=== PATIENT | female | born 1955 | race African-American/Black ===

== ENCOUNTER → 2018-05-04 | Outpatient (CLI) | payer MEDICARE ==
[2018-05-04 18:05] LABS: CHOLESTEROL 207.05 mg/dL (0-200); TRIGLYCERIDES 94 mg/dL (<150)
[2018-05-04 18:17] LABS: DIRECT LDL 121 mg/dL (<100)
[2018-05-04 18:26] LABS: FREE T3 3.37 pg/mL (2.77-5.27); FREE T4 (FREE THYROXINE) 1.15 ng/dL (0.78-2.19)
[2018-05-04 18:39] LABS: THYROID STIMULATING HORMONE 4.88 uIU/mL (0.47-4.68)
== END ==
LOC: OD 15:44
PROVIDERS: ATTEND Internal Medicine Geriatric Medicine
DX: E03.9 Hypothyroidism, unspecified (principal); E11.65 Type 2 diabetes mellitus with hyperglycemia
CPT/HCPCS: 36415; 80061; 84439; 84443; 84481

== ENCOUNTER 2018-11-25 17:08 | Emergency (ER) | payer OTHER, MEDICARE ==
[2018-11-25] MEDS ORDERED: ACETAMINOPHEN 325 MG TABLET PO ONE (17:55)
[2018-11-25] MEDS ORDERED: LIDOCAINE 5% (700 MG) TRANSDERMAL ADH..PATCH TP ONE (17:55)
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
[2018-11-25 20:23] VITALS: BP 140/76
== END 2018-11-25 20:23 | disposition home or self-care (01) ==
LOC: ER 17:08
DX: M25.512 Pain in left shoulder (principal); M54.6 Pain in thoracic spine; V87.7XXA Person injured in collision between other specified motor vehicles (traffic), initial encounter; J44.9 Chronic obstructive pulmonary disease, unspecified; Z99.81 Dependence on supplemental oxygen; Z87.891 Personal history of nicotine dependence
CPT/HCPCS: 99283

== ENCOUNTER → 2019-08-17 | Outpatient (CLI) | payer MEDICARE ==
--- NOTE | 2019-08-17 14:59 | WOMENS IMAGING REPORT ---
EXAM DESCRIPTION: 3D SCREENING MAMMO BILAT COMPLETED DATE/TIME: 08/17/2019 2:20 pm REASON FOR STUDY: Z12.31 SCREENING MAMMO Z12.31 ENCNTR SCREEN MAMMOGRAM FOR MALIGNANT NEOPLASM OF B RE COMPARISON: 2013. EXAM PARAMETERS: Standard craniocaudal and mediolateral oblique views of each breast recorded using digital acquisition and breast tomosynthesis. Read with the assistance of CAD. .[facility] - [employer] Version 9.2 LIMITATIONS: None. FINDINGS: Findings present which are benign by mammographic criteria. No suspicious masses, calcific ations or architectural distortion. Pertinent benign findings: Benign cluster of stable calcifications right breast. Benign mammographic findings may include one or more of the following: Smooth masses, popcorn/rim/coa rse calcifications, asymmetries, post-procedure changes, and lesions with long-standing stability. IMPRESSION: BENIGN MAMMOGRAPHIC FINDINGS. BIRADS 2 BREAST DENSITY: a. The breasts are almost entirely fatty. BIRAD: ASSESSMENT: 2 BENIGN FINDING(S) RECOMMENDATION: ROUTINE SCREENING COMMENT: The patient has been notified of the results by letter per SA requirements. Additional no tification policies are in place for contacting patient with suspicious or incomplete findings. Quality ID #225: The [employer] recommends an annual screening mammogram for women aged 40 years or over. This facility utilizes a reminder system to ensure that all patients receive reminder letters, and/or direct phone calls for appointments. This includes reminders for routine scr eening mammograms, diagnostic mammograms, or other Breast Imaging Interventions when appropriate. Th is patient will be placed in the appropriate reminder system. TECHNICAL DOCUMENTATION: FINDING NUMBER: (1) ASSESSMENT: (1) JOB ID: [id number] [employer]- All Rights Reserved Reading location - IP/workstation name: [email or web address]
== END ==
LOC: WI 13:40
PROVIDERS: ATTEND Internal Medicine Geriatric Medicine
DX: Z12.31 Encounter for screening mammogram for malignant neoplasm of breast (principal)
CPT/HCPCS: 77063; 77067

== ENCOUNTER → 2020-09-17 | Outpatient (CLI) | payer MEDICARE ==
--- NOTE | 2020-09-18 12:19 | WOMENS IMAGING REPORT ---
EXAM DESCRIPTION: 3D SCREENING MAMMO BILAT IMAGES COMPLETED DATE/TIME: 09/17/2020 3:26 pm REASON FOR STUDY: Z12.31 ENCOUNTER FOR SCREENING MAMMOGRAM FOR MALIGNANT NEOPLASM OF BREAST Z12.31 ENCNTR SCREEN MAMMOGRAM FOR MALIGNANT NEOPLASM OF [place] COMPARISON: 08/17/2019 and 11/30/2013. EXAM PARAMETERS: Standard craniocaudal and mediolateral oblique views of each breast recorded using digital acquisition and breast tomosynthesis. Read with the assistance of CAD. .[facility] - [employer] Version 9.2 LIMITATIONS: None. FINDINGS: Findings present which are benign by mammographic criteria. No suspicious masses, calcific ations or architectural distortion. Pertinent benign findings: Benign calcifications Benign mammographic findings may include one or more of the following: Smooth masses, popcorn/rim/coa rse calcifications, asymmetries, post-procedure changes, and lesions with long-standing stability. IMPRESSION: BENIGN MAMMOGRAPHIC FINDINGS. BIRADS 2 BREAST DENSITY: a. The breasts are almost entirely fatty. BIRAD: ASSESSMENT: 2 BENIGN FINDING(S) RECOMMENDATION: ROUTINE SCREENING COMMENT: The patient has been notified of the results by letter per SA requirements. Additional no tification policies are in place for contacting patient with suspicious or incomplete findings. Quality ID #225: The [employer] recommends an annual screening mammogram for women aged 40 years or over. This facility utilizes a reminder system to ensure that all patients receive reminder letters, and/or direct phone calls for appointments. This includes reminders for routine scr eening mammograms, diagnostic mammograms, or other Breast Imaging Interventions when appropriate. Th is patient will be placed in the appropriate reminder system. TECHNICAL DOCUMENTATION: FINDING NUMBER: (1) ASSESSMENT: (1) JOB ID: [id number] 2010 [employer]- All Rights Reserved Reading location - IP/workstation name: [email or web address]
== END ==
LOC: WI 14:58
PROVIDERS: ATTEND Internal Medicine Geriatric Medicine
DX: Z12.31 Encounter for screening mammogram for malignant neoplasm of breast (principal)
CPT/HCPCS: 77063; 77067

== ENCOUNTER 2020-11-17 16:11 | Inpatient (IN) | payer MEDICARE ==
[2020-11-17 18:10] LABS: ABSOLUTE LYMPHOCYTES (AUTO) 0.4 10^3/uL (0.5-4.7); ABSOLUTE MONOCYTES (AUTO) 0.5 10^3/uL (0.1-1.4); ABSOLUTE NEUT (AUTO) 2.2 10^3/uL (1.7-8.2); BASOPHILS % (AUTO) 0.6 % (0-2); HEMOGLOBIN 11.1 g/dL (12.0-15.5); LYMPHOCYTES % (AUTO) 13.1 % (13-45); MEAN CORPUSCULAR HEMOGLOBIN 31.5 pg (27.0-33.4); MEAN CORPUSCULAR HGB CONC 33.7 g/dL (32.0-36.0); MEAN CORPUSCULAR VOLUME 93 fl (80-97); MONOCYTES % (AUTO) 14.8 % (3-13); PLATELET COUNT 151 10^3/uL (150-450); RED BLOOD COUNT 3.53 10^6/uL (3.72-5.28); RED CELL DISTRIBUTION WIDTH 13.9 % (11.5-14.0); SEGMENTED NEUTROPHILS % (AUTO) 71.5 % (42-78); TOTAL CELLS COUNTED % (AUTO) 100 %
[2020-11-17 18:27] LABS: ALBUMIN 3.7 g/dL (3.5-5.0); ALKALINE PHOSPHATASE 63 U/L (38-126); ANION GAP 7 (5-19); ASPARTATE AMINO TRANSFERASE 22 U/L (14-36); BILIRUBIN,DIRECT 0.3 mg/dL (0.0-0.4); BILIRUBIN,TOTAL 0.6 mg/dL (0.2-1.3); BLOOD UREA NITROGEN 11 mg/dL (7-20); CALCIUM 9.1 mg/dL (8.4-10.2); CARBON DIOXIDE 34 mmol/L (22-30); CHLORIDE 95 mmol/L (98-107); GLUCOSE 91 mg/dL (75-110); POTASSIUM 4.2 mmol/L (3.6-5.0); TOTAL PROTEIN 7.2 g/dL (6.3-8.2)
[2020-11-17] MEDS ORDERED: ACETAMINOPHEN 325 MG TABLET PO ONE (20:17)
[2020-11-17] MEDS ORDERED: ONDANSETRON HCL INJ/PF 4 MG/2 ML SDV IV ONE (20:18)
[2020-11-17] MEDS ORDERED: ONDANSETRON HCL INJ/PF 4 MG/2 ML SDV ONE (20:20)
[2020-11-17] MEDS ORDERED: FENTANYL CITRATE INJ/PF 100 MCG/2 ML AMPUL IV ONE (21:32)
--- NOTE | 2020-11-17 21:35 | ER Document Report ---
ED Medical Screen (RME) - General TRAVEL OUTSIDE OF THE [place] IN LAST 30 DAYS: No - Related Data Home Medications: current med list in Pt. chart <ALEXANDRA MCLAIN - Last Filed: 11/17/20 21:33> <ARGEINS GRIFFITH IV - Last Filed: 11/18/20 01:12> - General Chief Complaint: Shortness Of Breath Stated Complaint: WEAKNESS Time Seen by Provider: 11/17/20 21:24 Primary Care Provider: OLAF GALLARDO MD [Primary Care Provider] - Follow up as needed Notes: Patient presents complaining of cough and cold symptoms for the past week. Patient did test positive this evening via a rapid Covid test per EMS. Patient reports nausea vomiting diarrhea. Patient complains of headache and generalized body aches. Patient complains of left hip pain. Patient does complain of chest pain and shortness of breath. Patient with a history of hypertension, asthma, diabetes and COPD. Patient does wear oxygen at 2 L. I have greeted and performed a rapid initial assessment of this patient. A comprehensive ED assessment and evaluation of the patient, analysis of test results and completion of the medical decision making process will be conducted by additional ED providers. (ALEXANDRA MCLAIN) - Related Data Allergies/Adverse Reactions: aspirin Allergy (Verified 03/03/19 14:22) rivaroxaban [From Xarelto] Allergy (Verified 03/03/19 14:22) Past Medical History - Social History Chew tobacco use (# tins/day): No Frequency of alcohol use: None Drug Abuse: None - Past Medical History Cardiac Medical History: Reports: Hx Hypercholesterolemia, Hx Hypertension Denies: Hx Heart Attack Pulmonary Medical History: Reports: Hx Asthma, Hx COPD Neurological Medical History: Denies: Hx Cerebrovascular Accident, Hx Seizures Endocrine Medical History: Reports: Hx Diabetes Mellitus Type 2 Renal/ Medical History: Denies: Hx Peritoneal Dialysis GI Medical History: Reports: Hx Hiatal Hernia. Denies: Hx Hepatitis, Hx Ulcer Psychiatric Medical History: Reports: Hx Depression Infectious Medical History: Denies: Hx Hepatitis Past Surgical History: Denies: Hx Mastectomy, Hx Open Heart Surgery, Hx Pacemaker - Immunizations Hx Diphtheria, Pertussis, Tetanus Vaccination: No <ALEXANDRA MCLAIN - Last Filed: 11/17/20 21:33> Physical Exam - General General appearance: Alert - Respiratory Respiratory status: No respiratory distress Breath sounds: Nonproductive cough <ALEXANDRA MCLAIN - Last Filed: 11/17/20 21:33> - Vital signs Vitals: Temp 99.8 F 11/17/20 16:12 - General Notes: Left hip tenderness (ALEXANDRA MCLAIN) Course - Laboratory Results Result Diagrams: 11/17/20 16:36 11/17/20 16:36 <ALEXANDRA MCLAIN - Last Filed: 11/17/20 21:33> - Laboratory Results Result Diagrams: 11/17/20 16:36 11/17/20 16:36 <ARGENIS GRIFFITH IV - Last Filed: 11/18/20 01:12> - Vital Signs Vital signs: Temp Pulse Resp BP Pulse Ox 99.8 F 11/17/20 16:12 - Laboratory Results Laboratory Results Interpreted: 11/17/20 11/17/20 11/17/20 16:36 16:36 23:20 WBC 3.0 L RBC 3.53 L Hgb 11.1 L Hct 33.0 L [place] % (Auto) 14.8 H Absolute Lymphs (auto) 0.4 L Sodium 135.6 L Chloride 95 L Carbon Dioxide 34 H Urine Protein Urine Glucose (UA) Urine Ketones Urine Urobilinogen SARS-CoV-2 Rap RNA(RT-PCR) POSITIVE H 11/17/20 23:30 WBC RBC Hgb Hct [place] % (Auto) Absolute Lymphs (auto) Sodium Chloride Carbon Dioxide Urine Protein 30 H Urine Glucose (UA) 50 H Urine Ketones 80 H Urine Urobilinogen 2.0 H SARS-CoV-2 Rap RNA(RT-PCR) Doctor's Discharge <ALEXANDRA MCLAIN - Last Filed: 11/17/20 21:33> <ARGENIS GRIFFITH IV - Last Filed: 11/18/20 01:12> - Discharge Referrals: OLAF GALLARDO MD [Primary Care Provider] - Follow up as needed
--- NOTE | 2020-11-17 22:28 | RADIOLOGY REPORT (SQ) ---
EXAM DESCRIPTION: X-RAY CHEST- One View CLINICAL HISTORY: Chest pain, cough. COMPARISON: March 03, 2019 TECHNIQUE: Single view of the chest. FINDINGS: There are overlying EKG leads. Examination is technically limited by rotated positioning. There are no discrete air space infiltrates, pneumothoraces or pleural effusions. The pulmonary vascularity is normal. The cardiomediastinal silhouette is persistently significantly enlarged, particularly the right heart border. Osseous structures are grossly stable in appearance. IMPRESSION: There are no acute lung parenchymal findings. Persistent significant enlargement of the cardiac silhouette.
[2020-11-17] MEDS ORDERED: NORMAL SALINE 1000 ML 1,000 ML IV ONE (23:02)
[2020-11-17] MEDS ORDERED: DEXAMETHASONE SOD PHOS INJ 10 MG/1 ML VIAL IV ONE (23:02)
[2020-11-17] MEDS ORDERED: LEVALBUTEROL HCL NEB 1.25 MG/3 ML AMPUL NEB ONE (23:04)
[2020-11-17] MEDS ORDERED: KETOROLAC TROMETHAMINE INJ/PF 30 MG/1 ML SDV IV ONE (23:04)
[2020-11-17 23:45] LABS: APPEARANCE,URINE SLIGHTLY-CLOUDY; BILIRUBIN,URINE NEGATIVE (NEGATIVE); COLOR,URINE YELLOW; GLUCOSE, URINE 50 mg/dL (NEGATIVE); KETONES,URINE 80 mg/dL (NEGATIVE); LEUKOCYTE ESTERASE,URINE NEGATIVE (NEGATIVE); NITRITE,URINE NEGATIVE (NEGATIVE); PROTEIN,URINE 30 mg/dL (NEGATIVE); URINE SPECIFIC GRAVITY 1.026
--- NOTE | 2020-11-18 01:07 | ER Document Report ---
ED General - General Chief Complaint: Shortness Of Breath Stated Complaint: WEAKNESS Time Seen by Provider: 11/17/20 21:24 Primary Care Provider: OLAF GALLARDO MD [Primary Care Provider] - Follow up as needed TRAVEL OUTSIDE OF THE [place] IN LAST 30 DAYS: No - HPI Context: Chief Complaint: [Dyspnea] [This is a 65-year-old female, morbidly obese with multiple comorbidities including diabetes, asthma, COPD, on 2 L of home O2, with a history of A. fib, hyperlipidemia and hypertension that presents to the emergency department complaining of shortness of breath, nausea, vomiting, diarrhea, headache, generalized myalgias and chest tightness associated with shortness of breath. Patient called EMS and was found to be Covid positive on the rapid Covid test that EMS utilizes. ] History obtained from [patient] Symptoms began:[Yesterday] Onset: [Gradual] Timing: [Gradual] Quality: [Aching] Intensity: [5 out of 5] Location: [Generalized] Radiation: [Denies] [The pain does not migrate to a new location.] Aggravating factors: Exertion Relieving factors: [none] Positive SOB Positive nausea Positive vomiting [Denies] sweats [Denies] fever [Denies] cough [Denies] calf or leg swelling or pain - Related Data Allergies/Adverse Reactions: aspirin Allergy (Verified 03/03/19 14:22) rivaroxaban [From Xarelto] Allergy (Verified 03/03/19 14:22) Home Medications: current med list in Pt. chart Past Medical History - General Information source: Patient - Social History Smoking Status: Former Smoker Chew tobacco use (# tins/day): No Frequency of alcohol use: None Drug Abuse: None Family History: Reviewed & Not Pertinent Patient has homicidal ideation: No - Past Medical History Cardiac Medical History: Reports: Hx Hypercholesterolemia, Hx Hypertension Denies: Hx Heart Attack Pulmonary Medical History: Reports: Hx Asthma, Hx COPD Neurological Medical History: Denies: Hx Cerebrovascular Accident, Hx Seizures Endocrine Medical History: Reports: Hx Diabetes Mellitus Type 2 Renal/ Medical History: Denies: Hx Peritoneal Dialysis GI Medical History: Reports: Hx Hiatal Hernia. Denies: Hx Hepatitis, Hx Ulcer Psychiatric Medical History: Reports: Hx Depression Infectious Medical History: Denies: Hx Hepatitis Past Surgical History: Denies: Hx Mastectomy, Hx Open Heart Surgery, Hx Pacemaker - Immunizations Hx Diphtheria, Pertussis, Tetanus Vaccination: No Hx Pneumococcal Vaccination: 11/16/15 Review of Systems - Review of Systems Notes: Review of systems as below unless otherwise stated in HPI. CONSTITUTIONAL [No] fever, [No] chills. EYES [No] eye pain. ENT [No] URI symptoms, [No] sore throat, [No] ear pain. CARDIOVASCULAR Positive chest pain, [No] palpitations, [No] edema. RESPIRATORY Positive cough, positive SOB, [No] wheezing. GASTROINTESTINAL [No] abdominal pain, positive nausea, positive diarrhea, positive vomiting, [No] constipation, [No] melena, [No] rectal bleeding. GENITOURINARY [No] dysuria, [No] urinary frequency, [No] hematuria, [No] urinary urgency, [No] vaginal discharge, [No] vaginal bleeding. MUSCULOSKELETAL [No] Back pain. Positive generalized myalgias SKIN [No] Rash. NEUROLOGIC Positive headache, [No] recent seizures, [No] paralysis,[No] parathesias. ENDOCRINE [No] polyuria. HEMO/LYMPATIC [No] easy brusing PSYCHIATRIC [No] depression. Physical Exam - Vital signs Vitals: Temp 99.8 F 11/17/20 16:12 - Notes Notes: CONSTITUTIONAL [Vital signs reviewed, Patient appears mildly uncomfortable, Alert and oriented X 3, patient is morbidly obese] HEAD [Atraumatic, Normocephalic.] EYES [Eyes are normal to inspection, No discharge from eyes, Extraocular muscles intact, Sclera are normal, Conjunctiva are normal.] ENT [External ears normal to inspection, Nose examination normal, Mouth normal to inspection.] NECK [Normal ROM, No jugular venous distention, No meningeal signs, ] RESPIRATORY CHEST [Chest is nontender, Breath sounds normal, No respiratory distress.] CARDIOVASCULAR [RRR, No murmurs, Normal S1 S2, No rub, No gallop.] ABDOMEN [Abdomen is nontender, No pulsatile masses, No other masses, Bowel sounds normal, No distension, No peritoneal signs, No hernias.] BACK [There is no CVA Tenderness, There is no tenderness to palpation, Normal inspection.] UPPER EXTREMITY [Inspection normal, No cyanosis, No clubbing, No edema, LOWER EXTREMITY [Inspection normal, No cyanosis, No clubbing, No edema, No calf tenderness, NEURO [No focal motor deficits, No focal sensory deficits, Speech normal.] SKIN [Skin is warm, Skin is dry, Skin is normal color.] PSYCHIATRIC [Normal affect. ] Course - Re-evaluation Re-evalutation: 11/18/20 01:22 Results of ED MSE discussed with patient. All questions were answered. Admission was recommended to the patient given her comorbidities and history of COPD, asthma and complaint of shortness of breath. Patient was agreeable to this - Vital Signs Vital signs: Temp Pulse Resp BP Pulse Ox 99.8 F 11/17/20 16:12 - Laboratory Results Result Diagrams: 11/17/20 16:36 11/17/20 16:36 Laboratory Results Interpreted: 11/17/20 11/17/20 11/17/20 16:36 16:36 23:20 WBC 3.0 L RBC 3.53 L Hgb 11.1 L Hct 33.0 L [place] % (Auto) 14.8 H Absolute Lymphs (auto) 0.4 L Sodium 135.6 L Chloride 95 L Carbon Dioxide 34 H Urine Protein Urine Glucose (UA) Urine Ketones Urine Urobilinogen SARS-CoV-2 Rap RNA(RT-PCR) POSITIVE H 11/17/20 23:30 WBC RBC Hgb Hct [place] % (Auto) Absolute Lymphs (auto) Sodium Chloride Carbon Dioxide Urine Protein 30 H Urine Glucose (UA) 50 H Urine Ketones 80 H Urine Urobilinogen 2.0 H SARS-CoV-2 Rap RNA(RT-PCR) Critical Laboratory Results Reviewed: Yes Attending or Supervising Physician who Reviewed Labs: ARGENIS GRIFFITH IV - Patient is Covid positive - Radiology Results Critical Radiology Results Reviewed: No Critical Results Attending or Supervising Physician who Reviewed Radiology: ARGENIS GRIFFITH IV - EKG Interpretation by Me Additional EKG results interpreted by me: 11/18/20 01:24 EKG obtained on 11/17/2020 at 2211 hrs. was interpreted by this . Findings: Normal sinus rhythm, rate 73, normal axis, IA interval appears to be within normal limits, P waves preceding QRS complexes, with the exception of some artifact the QRS complexes appear narrow, QTC is 410, there are no obvious patterns of ST segment elevation, depression or reciprocal changes seen to suggest acute myocardial ischemia. When compared with prior EKG from 12/05/2018, previous EKG showed a tachycardia with a rate of 188 with some irregularity. Today's EKG appears improved with a normal sinus rhythm. Impression normal sinus rhythm with nonspecific ST segment findings. - Consults Dr. Vuong Time consulted: 01:10 - Dr. Vuong agreed to admit the patient on behalf of Dr. Gallardo Reason for consultation: 11/18/20 01:26 COVID-19 patient with shortness of breath and multiple comorbidities Discharge - Discharge Clinical Impression: COVID-19 Condition: Stable Disposition: ADMITTED INPATIENT Admitting Provider: Brooke Unit Admitted: [facility] Referrals: OLAF GALLARDO MD [Primary Care Provider] - Follow up as needed
[2020-11-18] MEDS ORDERED: AZITHROMYCIN 250 MG TABLET PO ONE (09:00)
--- NOTE | 2020-11-18 09:47 | EKG REPORT ---
SEVERITY:- ABNORMAL ECG - SINUS RHYTHM : Confirmed by: Andrew Madison MD 18-Nov-2020 09:46:11
[2020-11-18] MEDS: PANTOPRAZOLE SODIUM 40 MG TABLET.DR PO SCH (09:51)
[2020-11-18] MEDS: ASCORBIC ACID 500 MG TABLET PO SCH ×2 (09:51→18:01)
[2020-11-18] MEDS: CHOLECALCIFEROL (D3) 1,000 UNIT (25 MCG) TABLET PO SCH (09:51)
[2020-11-18] MEDS: OXYCODONE-ACETAMINOPHEN 5-325 MG TABLET PO PRN ×3 (09:51→23:45)
[2020-11-18] MEDS: DEXAMETHASONE SOD PHOS INJ 10 MG/1 ML VIAL IV SCH (09:52)
[2020-11-18] MEDS: ZINC SULFATE 220 MG CAPSULE PO SCH (09:52)
[2020-11-18] MEDS ORDERED: ENOXAPARIN SODIUM INJ 40 MG/0.4 ML DISP.SYRIN SUBCUT SCH (10:00)
[2020-11-18] MEDS ORDERED: IVERMECTIN 3 MG TABLET PO ONE (10:00)
[2020-11-18 10:01] LABS: ARTERIAL BLOOD BASE EXCESS 2.4 mmol/L; ARTERIAL BLOOD HCO3 27.8 mmol/L (20-24); ARTERIAL BLOOD O2 SATURATION 98.1 % (94-98); ARTERIAL BLOOD PCO2 46.5 mmHg (35-45); ARTERIAL BLOOD PH 7.39 (7.35-7.45); ARTERIAL BLOOD TOTAL CO2 29.2 mmol/L (21-25)
[2020-11-18 10:02] LABS: ARTERIAL BLOOD FIO2 28%
[2020-11-18] MEDS ORDERED: GLUCAGON,HUMAN RECOMB 1 MG INJ IM PRN (11:19)
[2020-11-18] MEDS ORDERED: DEXTROSE 50%-WATER 25 GM/50 ML DISP.SYRIN IV PRN ×2 (11:19)
[2020-11-18] MEDS ORDERED: DEXTROSE 40% GEL 15 GM TUBE PO PRN ×2 (11:19)
[2020-11-18 11:27] LABS: HEMATOCRIT 31.9 % (36.0-47.0); HEMOGLOBIN 10.7 g/dL (12.0-15.5); MEAN CORPUSCULAR HEMOGLOBIN 31.2 pg (27.0-33.4); MEAN CORPUSCULAR HGB CONC 33.6 g/dL (32.0-36.0); MEAN CORPUSCULAR VOLUME 93 fl (80-97); PLATELET COUNT 139 10^3/uL (150-450); RED BLOOD COUNT 3.44 10^6/uL (3.72-5.28)
[2020-11-18 11:47] LABS: ALBUMIN 3.5 g/dL (3.5-5.0); ALKALINE PHOSPHATASE 56 U/L (38-126); ANION GAP 6 (5-19); ASPARTATE AMINO TRANSFERASE 24 U/L (14-36); BILIRUBIN,DIRECT 0.2 mg/dL (0.0-0.4); BILIRUBIN,TOTAL 0.5 mg/dL (0.2-1.3); BLOOD UREA NITROGEN 14 mg/dL (7-20); C-REACTIVE PROTEIN 31.3 mg/L (<10.0); CALCIUM 8.6 mg/dL (8.4-10.2); CARBON DIOXIDE 32 mmol/L (22-30); CHLORIDE 99 mmol/L (98-107); CREATINE KINASE 83 U/L (30-135); GLUCOSE 135 mg/dL (75-110); POTASSIUM 4.2 mmol/L (3.6-5.0); TOTAL PROTEIN 6.8 g/dL (6.3-8.2)
[2020-11-18 11:48] LABS: INTERNATIONAL RATION (INR) 0.98; PROTHROMBIN TIME 13.1 SEC (11.4-15.4)
[2020-11-18 11:49] LABS: FIBRINOGEN 569 mg/dL (209-497); PARTIAL THROMBOPLASTIN TIME 35.8 SEC (23.5-35.8)
[2020-11-18 11:52] LABS: D-DIMER 0.37 ug/mL (0.00-0.50); WHITE BLOOD COUNT 1.6 10^3/uL (4.0-10.5)
[2020-11-18 11:58] LABS: ABSOLUTE LYMPHOCYTES# (MANUAL) 0.3 10^3/uL (0.5-4.7); BASOPHILS % (MANUAL) 0 % (0-2); EOSINOPHILS % (MANUAL) 0 % (0-6); LYMPHOCYTES % (MANUAL) 16 % (13-45); MONOCYTES % (MANUAL) 2 % (3-13); SEGMENTED NEUTROPHILS % (MAN) 82 % (42-78); TOTAL CELLS COUNTED 50
[2020-11-18 11:59] LABS: ANISOCYTOSIS SLIGHT; PLATELET COMMENT ADEQUATE
--- NOTE | 2020-11-18 13:23 | RADIOLOGY REPORT (SQ) ---
EXAM DESCRIPTION: CT CHEST WITHOUT IMAGES COMPLETED DATE/TIME: 11/18/2020 1:04 pm REASON FOR STUDY: pneumonia COMPARISON: None. TECHNIQUE: CT scan performed of the chest without intravenous contrast. Images reviewed with lung, soft tissue and bone windows. Reconstructed coronal and sagittal MPR images reviewed. All images st ored on PACS. All CT scanners at this facility use dose modulation, iterative reconstruction, and/or weight based d osing when appropriate to reduce radiation dose to as low as reasonably achievable (ALARA). [facility]: Dose Right [facility]: CareDose [facility]: Dose Right [facility]: Teradose 4D [facility]: Smart Gridle.in RADIATION DOSE: CT Rad equipment meets quality standard of care and radiation dose reduction techniq ues were employed. CTDIvol: 19.5 mGy. DLP: 809 mGy-cm. mGy. LIMITATIONS: No technical limitations. FINDINGS: LUNGS AND PLEURA: Pleural thickening along the fissures bilaterally. No infiltrate. No e ffusions. HILAR AND MEDIASTINAL STRUCTURES: No identified masses or abnormal nodes. No obvious aneurysm. HEART AND VASCULAR STRUCTURES: No aneurysm. No pericardial effusion. UPPER ABDOMEN: Gallstones. Limited exam. THYROID AND OTHER SOFT TISSUES: No masses. No adenopathy. BONES: No significant finding. HARDWARE: None in the chest. OTHER: No other significant findings. IMPRESSION: NO SIGNIFICANT FINDING ON NON-CONTRASTED CHEST CT. TECHNICAL DOCUMENTATION: JOB ID: [id number] Quality ID # [id number]: Final reports with documentation of one or more dose reduction techniques (e.g., Au tomated exposure control, adjustment of the mA and/or kV according to patient size, use of iterative reconstruction technique) 2010 [employer]- All Rights Reserved Reading location - IP/workstation name: [email or web address]
--- NOTE | 2020-11-18 14:11 | RADIOLOGY REPORT (SQ) ---
EXAM DESCRIPTION: HIP BILATERAL IMAGES COMPLETED DATE/TIME: 11/18/2020 1:23 pm REASON FOR STUDY: hip pain COMPARISON: None. NUMBER OF VIEWS: Four views. TECHNIQUE: AP pelvis and additional frog legview of the right and left hip. LIMITATIONS: None. FINDINGS: There are end-stage osteoarthritic changes in the left hip with remodeling of the femoral head. Mild osteoarthritis in the right hip. SI joints are normal. IMPRESSION: Advanced osteoarthritis left hip. TECHNICAL DOCUMENTATION: JOB ID: [id number] [employer]- All Rights Reserved Reading location - IP/workstation name: [email or web address]
[2020-11-18] MEDS: INSULIN LISPRO 100 UNIT/ML 3 ML VIAL SUBCUT SCH ×3 (15:06→21:57)
[2020-11-18] MEDS ORDERED: SUCRALFATE 1 GM/10 ML PO SCH (16:00)
[2020-11-18] MEDS ORDERED: ROSUVASTATIN CALCIUM 5 MG PO SCH (16:00)
[2020-11-18] MEDS ORDERED: LEVOTHYROXINE SODIUM 125 MCG PO SCH (16:00)
[2020-11-18] MEDS ORDERED: LISINOPRIL 2.5 MG PO SCH (16:00)
[2020-11-18] MEDS ORDERED: (PENDING PHARMACY ID) (Omeprazole [Omeprazole] 40 MG Capsule.Dr) PO SCH (16:00)
[2020-11-18] MEDS: PREGABALIN 100 MG CAPSULE PO SCH ×2 (16:56→21:57)
[2020-11-18] MEDS: LISINOPRIL 5 MG TABLET PO SCH (16:56)
[2020-11-18] MEDS: LEVOTHYROXINE SODIUM 0.025 MG TABLET PO SCH (16:56)
[2020-11-18] MEDS ORDERED: LEVOTHYROXINE SODIUM 0.1 MG TABLET PO SCH (17:00)
--- NOTE | 2020-11-18 17:14 | PDOC H&P ---
History of Present Illness Admission Date/PCP: 11/18/20 01:41 OLAF PAULINA History of Present Illness: ADRIANA MCCORMACK is a 65 year old female, She has multiple comorbid conditions including diabetes mellitus, chronic obstructive lung disease with chronic respiratory failure on home oxygen, chronic atrial fibrillation on anticoagulation, morbid obesity hyperlipidemia hypertension she came to the emergency room for evaluation of shortness of breath.She was brought to emergency room by the ambulance a rapid SARS-CoV-2 test was done and was positive. In the emergency room she was evaluated a chest x-ray was done that was negative, when I saw the patient she was literally screaming of pain affecting the left hip joint ,x-rayed the left hip, it demonstrated end-stage osteoarthritis changes in the left hip with remodeling of the femoral head there is mild osteoarthritis of the right hip, she told me that she was advised to have left hip replacement but because of the Covid pandemic the surgery was postponed or is yet to be scheduled., CT chest without contrast was obtained it demonstrated pleural thickening along the fissure bilaterally there is no infiltrate no effusion, the arterial blood gas that was done on FiO2 28% pH is 7.39, PO2 114, bicarbonate 27.8, PCO2 46.5. So she does not have Covid pneumonia she does have Covid but because of the multiple comorbid conditions the ED physician felt patient needed inpatient care Past Medical History Cardiac Medical History: Reports: Hyperlipidema, Hypertension Pulmonary Medical History: Reports: Asthma, Chronic Obstructive Pulmonary Disease (COPD) Endocrine Medical History: Reports: Diabetes Mellitus Type 2 GI Medical History: Reports: Hiatal Hernia Psychiatric Medical History: Reports: Depression Hematology: Reports: Anemia Denies: Sickle Cell Disease Social History Smoking Status: Former Smoker Electronic Cigarette use?: No Frequency of Alcohol Use: None Hx Recreational Drug Use: No Drugs: None Hx Prescription Drug Abuse: No Family History Family History: Reviewed & Not Pertinent Parental Family History Reviewed: Yes Children Family History Reviewed: Yes Sibling(s) Family History Reviewed.: Yes Medication/Allergy Home Medications: Dabigatran Etexilate Mesylate [Pradaxa 150 mg Capsule] 150 mg PO Q12 03/03/19 Furosemide [Lasix 80 mg Tablet] 80 mg PO DAILY 03/03/19 Insulin Glargine,Hum.rec.anlog [Lantus Insulin 100 Unit/1 ml 10 ml] 35 unit SQ QPM 03/03/19 Levothyroxine Sodium [Synthroid] 125 mcg PO Q6AM 03/03/19 Lisinopril [Prinivil 2.5 mg Tablet] 2.5 mg PO DAILY 03/03/19 Metoprolol Tartrate [Lopressor 25 mg Tablet] 25 mg PO Q12 03/03/19 Montelukast Sodium [Singulair 10 mg Tablet] 10 mg PO DAILY 03/03/19 Omeprazole 40 mg PO DAILY 03/03/19 Pregabalin [Lyrica 100 mg Capsule] 100 mg PO Q8 03/03/19 Roflumilast [Daliresp 500 mcg Tablet] 500 mcg PO DAILY 03/03/19 Rosuvastatin Calcium 5 mg PO DAILY 11/18/20 Sucralfate [Carafate Susp 1 Gm/10 Ml Udcup] 1 gm PO QID 11/18/20 Allergies/Adverse Reactions: aspirin Allergy (Verified 03/03/19 14:22) rivaroxaban [From Xarelto] Allergy (Verified 03/03/19 14:22) Review of Systems Constitutional: ABSENT: chills, fever(s), headache(s), weight gain, weight loss Eyes: ABSENT: visual disturbances Ears: ABSENT: hearing changes Cardiovascular: ABSENT: as per HPI, chest pain, dyspnea on exertion, edema, ort hropnea, palpitations, other Respiratory: PRESENT: dyspnea. ABSENT: cough, hemoptysis Gastrointestinal: ABSENT: abdominal pain, constipation, diarrhea, hematemesis, hematochezia, nausea, vomiting Genitourinary: ABSENT: dysuria, hematuria Musculoskeletal: PRESENT: back pain. ABSENT: joint swelling Integumentary: ABSENT: rash, wounds Neurological: ABSENT: abnormal gait, abnormal speech, confusion, dizziness, focal weakness, syncope Psychiatric: ABSENT: anxiety, depression, homidical ideation, suicidal ideation Endocrine: ABSENT: cold intolerance, heat intolerance, menstrual abnormalities, polydipsia, polyuria Hematologic/Lymphatic: ABSENT: easy bleeding, easy bruising, lymphadenopathy Physical Exam Vital Signs: Temp Pulse Resp BP Pulse Ox 97.8 F 43 L 20 166/70 H 100 11/18/20 15:22 11/18/20 15:22 11/18/20 15:22 11/18/20 15:22 11/18/20 15:22 Intake & Output 11/17/20 11/18/20 11/19/20 06:59 06:59 06:59 Intake Total 1705 Balance 1705 Weight 138.2 kg 138.2 kg General appearance: PRESENT: morbidly obese Head exam: PRESENT: atraumatic, normocephalic Eye exam: PRESENT: PERRLA Ear exam: PRESENT: normal external ear exam Neck exam: PRESENT: full ROM Respiratory exam: PRESENT: clear to auscultation logan Cardiovascular exam: PRESENT: RRR, +S1, +S2 Vascular exam: PRESENT: normal capillary refill GI/Abdominal exam: PRESENT: normal bowel sounds, soft Rectal exam: PRESENT: deferred Neurological exam: PRESENT: alert, CN II-XII grossly intact Psychiatric exam: PRESENT: appropriate affect, normal mood Skin exam: PRESENT: dry, intact, warm. ABSENT: cyanosis, rash Results Laboratory Results: 11/18/20 10:55 11/18/20 10:55 11/17/20 11/17/20 11/17/20 16:36 16:36 23:30 WBC 3.0 L RBC 3.53 L Hgb 11.1 L Hct 33.0 L MCV 93 MCH 31.5 MCHC 33.7 RDW 13.9 Plt Count 151 Seg Neutrophils % 71.5 Carbonic Acid HCO3/H2CO3 Ratio ABG pH ABG pCO2 ABG pO2 ABG HCO3 ABG O2 Saturation ABG Base Excess FiO2 Sodium 135.6 L Potassium 4.2 Chloride 95 L Carbon Dioxide 34 H Anion Gap 7 BUN 11 Creatinine 0.82 Est GFR ( Amer) > 60 Glucose 91 Calcium 9.1 Ferritin Total Bilirubin 0.6 AST 22 Alkaline Phosphatase 63 C-Reactive Protein Total Protein 7.2 Albumin 3.7 Urine Color YELLOW Urine Appearance SLIGHTLY-CLOUDY Urine pH 5.0 Ur Specific [place] 1.026 Urine Protein 30 H Urine Glucose (UA) 50 H Urine Ketones 80 H Urine Blood NEGATIVE Urine Nitrite NEGATIVE Ur Leukocyte Esterase NEGATIVE Urine WBC (Auto) 0 Urine RBC (Auto) 5 Blood Type 11/18/20 11/18/20 11/18/20 09:40 10:55 10:55 WBC 1.6 L D RBC 3.44 L Hgb 10.7 L Hct 31.9 L MCV 93 MCH 31.2 MCHC 33.6 RDW 14.0 Plt Count 139 L Seg Neutrophils % Not Reportable Carbonic Acid 1.40 H HCO3/H2CO3 Ratio 19:1 ABG pH 7.39 ABG pCO2 46.5 H ABG pO2 114.0 H ABG HCO3 27.8 H ABG O2 Saturation 98.1 H ABG Base Excess 2.4 FiO2 28% Sodium 136.8 L Potassium 4.2 Chloride 99 Carbon Dioxide 32 H Anion Gap 6 BUN 14 Creatinine 0.91 Est GFR ( Amer) > 60 Glucose 135 H Calcium 8.6 Ferritin 54.00 Total Bilirubin 0.5 AST 24 Alkaline Phosphatase 56 C-Reactive Protein 31.3 H Total Protein 6.8 Albumin 3.5 Urine Color Urine Appearance Urine pH Ur Specific [place] Urine Protein Urine Glucose (UA) Urine Ketones Urine Blood Urine Nitrite Ur Leukocyte Esterase Urine WBC (Auto) Urine RBC (Auto) Blood Type 11/18/20 10:55 WBC RBC Hgb Hct MCV MCH MCHC RDW Plt Count Seg Neutrophils % Carbonic Acid HCO3/H2CO3 Ratio ABG pH ABG pCO2 ABG pO2 ABG HCO3 ABG O2 Saturation ABG Base Excess FiO2 Sodium Potassium Chloride Carbon Dioxide Anion Gap BUN Creatinine Est GFR ( Amer) Glucose Calcium Ferritin Total Bilirubin AST Alkaline Phosphatase C-Reactive Protein Total Protein Albumin Urine Color Urine Appearance Urine pH Ur Specific [place] Urine Protein Urine Glucose (UA) Urine Ketones Urine Blood Urine Nitrite Ur Leukocyte Esterase Urine WBC (Auto) Urine RBC (Auto) Blood Type A POSITIVE 11/17/20 11/18/20 11/18/20 16:36 10:55 10:55 Creatine Kinase 83 Troponin I < 0.012 < 0.012 Impressions: Chest X-Ray 11/17/20 21:33 IMPRESSION: There are no acute lung parenchymal findings. Persistent significant enlargement of the cardiac silhouette. Chest CT 11/18/20 00:00 IMPRESSION: NO SIGNIFICANT FINDING ON NON-CONTRASTED CHEST CT. Hip X-Ray 11/18/20 00:00 IMPRESSION: Advanced osteoarthritis left hip. Assessment & Plan - Diagnosis (1) COVID-19 Is this a current diagnosis for this admission?: Yes Plan: She has COVID-19 but no Covid pneumonia, she has multiple risk factors, she will be treated with dexamethasone, she does not qualify for remdesivir because there is no pneumonia and there is no hypoxemia (2) Unilateral primary osteoarthritis, left hip Is this a current diagnosis for this admission?: Yes Plan: She has end-stage osteoarthritis of the left hip, pain medication with Percocet she needs hip replacement (3) Permanent atrial fibrillation Is this a current diagnosis for this admission?: Yes Plan: She has chronic atrial fibrillation, continue anticoagulant with Pradaxa (4) Sinus bradycardia Is this a current diagnosis for this admission?: Yes Plan: She is on metoprolol, will hold the beta-pancho for now - Time Time Spent: Greater than 70 Minutes Medications reviewed and adjusted accordingly: Yes Anticipated Discharge Disposition: Home, Self Care Anticipated Discharge Timeframe: within 72 hours
--- NOTE | 2020-11-18 17:59 | EKG REPORT ---
SEVERITY:- OTHERWISE NORMAL ECG - SINUS BRADYCARDIA : Confirmed by: Andrew Madison MD 18-Nov-2020 17:59:05
[2020-11-18] MEDS: DABIGATRAN ETEXILATE 150 MG CAPSULE PO SCH (18:01)
[2020-11-18] MEDS: INSULIN GLARGINE,HUM.REC.ANLOG 1,000 UNIT/10 ML VIAL SUBCUT SCH (18:02)
[2020-11-18] MEDS: SUCRALFATE 1 GM TABLET PO SCH ×2 (18:02→21:57)
[2020-11-18] MEDS: ATORVASTATIN CALCIUM 10 MG TABLET PO SCH (21:57)
[2020-11-19] MEDS: TEMAZEPAM 7.5 MG CAPSULE PO PRN ×2 (00:46→23:55)
[2020-11-19] MEDS: DABIGATRAN ETEXILATE 150 MG CAPSULE PO SCH ×2 (06:11→17:45)
[2020-11-19] MEDS: LEVOTHYROXINE SODIUM 0.025 MG TABLET PO SCH (06:11)
[2020-11-19] MEDS: PANTOPRAZOLE SODIUM 40 MG TABLET.DR PO SCH (06:11)
[2020-11-19] MEDS: PREGABALIN 100 MG CAPSULE PO SCH ×3 (06:12→21:32)
[2020-11-19] MEDS: RINGERS SOLUTION,LACTATED 1,000 ML IV PRN ×2 (06:49→21:33)
[2020-11-19] MEDS: INSULIN LISPRO 100 UNIT/ML 3 ML VIAL SUBCUT SCH ×4 (08:31→21:30)
[2020-11-19] MEDS: SUCRALFATE 1 GM TABLET PO SCH ×4 (08:38→21:32)
[2020-11-19] MEDS: AZITHROMYCIN 250 MG TABLET PO SCH (09:15)
[2020-11-19] MEDS: ASCORBIC ACID 500 MG TABLET PO SCH ×2 (09:15→17:45)
[2020-11-19] MEDS: CHOLECALCIFEROL (D3) 1,000 UNIT (25 MCG) TABLET PO SCH (09:16)
[2020-11-19] MEDS: DEXAMETHASONE SOD PHOS INJ 10 MG/1 ML VIAL IV SCH (09:16)
[2020-11-19] MEDS: OXYCODONE-ACETAMINOPHEN 5-325 MG TABLET PO PRN ×3 (09:16→21:32)
[2020-11-19] MEDS: LISINOPRIL 5 MG TABLET PO SCH (09:20)
[2020-11-19] MEDS: ZINC SULFATE 220 MG CAPSULE PO SCH (09:50)
--- NOTE | 2020-11-19 10:34 | PDOC PROGRESS REPORT ---
Subjective Date:: 11/19/20 Subjective:: She reported left hip joint pain. No chest pain. Breathing at baseline on supple mental oxygen at 2L/min. No fever or chills. No abdominal pain, nausea or vomiting. Reason For Visit: COVID-19 PNEUMONIA Physical Exam Vital Signs: Temp Pulse Resp BP Pulse Ox 98.1 F 51 L 18 128/62 H 97 11/19/20 03:00 11/19/20 07:00 11/19/20 03:00 11/19/20 03:00 11/19/20 03:00 Intake & Output 11/18/20 11/19/20 11/20/20 06:59 06:59 06:59 Intake Total 1705 903 Output Total 600 Balance 1705 303 Weight 138.2 kg 138 kg General appearance: PRESENT: mild distress - on supplemental oxygen, morbidly obese Head exam: PRESENT: atraumatic, normocephalic Eye exam: PRESENT: conjunctiva pink. ABSENT: scleral icterus Ear exam: PRESENT: normal external ear exam Mouth exam: PRESENT: moist Respiratory exam: PRESENT: clear to auscultation logan, decreased breath sounds - at lung bases Cardiovascular exam: PRESENT: RRR, +S1, +S2. ABSENT: diastolic murmur, rubs, systolic murmur Vascular exam: ABSENT: pallor GI/Abdominal exam: PRESENT: normal bowel sounds, soft. ABSENT: distended, guarding, mass, organolmegaly, rebound, tenderness Extremities exam: ABSENT: pedal edema Neurological exam: PRESENT: alert, awake Skin exam: PRESENT: dry, warm Results Laboratory Results: 11/18/20 10:55 11/18/20 10:55 11/18/20 11/18/20 11/18/20 10:55 10:55 10:55 WBC 1.6 L D RBC 3.44 L Hgb 10.7 L Hct 31.9 L MCV 93 MCH 31.2 MCHC 33.6 RDW 14.0 Plt Count 139 L Seg Neutrophils % Not Reportable Sodium 136.8 L Potassium 4.2 Chloride 99 Carbon Dioxide 32 H Anion Gap 6 BUN 14 Creatinine 0.91 Est GFR ( Amer) > 60 Glucose 135 H Calcium 8.6 Ferritin 54.00 Total Bilirubin 0.5 AST 24 Alkaline Phosphatase 56 C-Reactive Protein 31.3 H Total Protein 6.8 Albumin 3.5 Blood Type A POSITIVE 11/17/20 11/18/20 11/18/20 16:36 10:55 10:55 Creatine Kinase 83 Troponin I < 0.012 < 0.012 Impressions: Chest X-Ray 11/17/20 21:33 IMPRESSION: There are no acute lung parenchymal findings. Persistent significant enlargement of the cardiac silhouette. Chest CT 11/18/20 00:00 IMPRESSION: NO SIGNIFICANT FINDING ON NON-CONTRASTED CHEST CT. Hip X-Ray 11/18/20 00:00 IMPRESSION: Advanced osteoarthritis left hip. Assessment & Plan - Diagnosis (1) COVID-19 Is this a current diagnosis for this admission?: Yes Plan: She will be started n Remdesivir therapy and receive second dose of Ivermectin tomorrow. (2) Permanent atrial fibrillation Is this a current diagnosis for this admission?: Yes Plan: Maintain on Pradaxa therapy. (3) Unilateral primary osteoarthritis, left hip Is this a current diagnosis for this admission?: Yes Plan: Maintain on current pain medication management regimen. (4) Diabetes mellitus type 2 in obese Is this a current diagnosis for this admission?: Yes Plan: Maintain on current medication management. (5) HTN (hypertension) Qualifiers: Hypertension type: essential hypertension Qualified Code(s): I10 - Essential (primary) hypertension Is this a current diagnosis for this admission?: Yes Plan: Maintain on current medication management. (6) Pickwickian syndrome Is this a current diagnosis for this admission?: Yes Plan: Maintain on current medication management. (7) BMI 50.0-59.9, adult Is this a current diagnosis for this admission?: Yes Plan: Continue supportive and dietary caloric restrictions. - Time Time Spent with patient: 25-34 minutes Level of Care: IMCU Medications reviewed and adjusted accordingly: Yes Anticipated discharge: Home with Homehealth Anticipated DC Timeframe: within 72 hours - Inpatient Certification Based on my medical assessment, after consideration of the patient's comorbidities, presenting symptoms, or acuity I expect that the services needed warrant INPATIENT care.: Yes I certify that my determination is in accordance with my understanding of Medicare's requirements for reasonable and necessary INPATIENT services [42 CFR 412.3e].: Yes Medical Necessity: Significant Comorbidiites Make Outpatient Treatment Too Risky, Need Close Monitoring Due to Risk of Patient Decompensation, Need For IV Fluids, Need For Continuous Telemetry Monitoring, Need for IV Antibiotics, Risk of Complication if Not Cared For in Hospital, Risk of Diagnosis Which Will Require Inpatient Eval/Care/Monitoring Post Hospital Care: D/C Garbage Pick Up Man Documentation - Plan Summary Plan Summary: See attending physician orders for details about care plan.
[2020-11-19 11:45] LABS: PATH REVIEW PATHOLOGIST REVIEWED
[2020-11-19] MEDS ORDERED: REMDESIVIR 200 MG in NORMAL SALINE 250 ML IV ONE (12:00)
[2020-11-19] MEDS: INSULIN GLARGINE,HUM.REC.ANLOG 1,000 UNIT/10 ML VIAL SUBCUT SCH (17:45)
[2020-11-19] MEDS: ATORVASTATIN CALCIUM 10 MG TABLET PO SCH (21:32)
[2020-11-20] MEDS: ACETAMINOPHEN 325 MG TABLET PO PRN (01:59)
[2020-11-20] MEDS: LEVOTHYROXINE SODIUM 0.1 MG TABLET PO SCH (05:01)
[2020-11-20] MEDS: DABIGATRAN ETEXILATE 150 MG CAPSULE PO SCH ×2 (05:01→18:03)
[2020-11-20] MEDS: PREGABALIN 100 MG CAPSULE PO SCH ×3 (05:02→21:30)
[2020-11-20] MEDS: PANTOPRAZOLE SODIUM 40 MG TABLET.DR PO SCH (05:02)
[2020-11-20] MEDS: LEVOTHYROXINE SODIUM 0.025 MG TABLET PO SCH (05:02)
[2020-11-20] MEDS: OXYCODONE-ACETAMINOPHEN 5-325 MG TABLET PO PRN ×3 (05:40→18:03)
[2020-11-20] MEDS: INSULIN LISPRO 100 UNIT/ML 3 ML VIAL SUBCUT SCH ×4 (07:46→21:29)
[2020-11-20] MEDS: RINGERS SOLUTION,LACTATED 1,000 ML IV PRN ×2 (08:04→18:03)
[2020-11-20] MEDS: SUCRALFATE 1 GM TABLET PO SCH ×4 (08:04→21:30)
[2020-11-20] MEDS: ZINC SULFATE 220 MG CAPSULE PO SCH (09:44)
[2020-11-20] MEDS: REMDESIVIR 100 MG in NORMAL SALINE 250 ML IV SCH (09:53)
[2020-11-20] MEDS: DEXAMETHASONE SOD PHOS INJ 10 MG/1 ML VIAL IV SCH (09:53)
[2020-11-20] MEDS: LISINOPRIL 5 MG TABLET PO SCH (09:54)
[2020-11-20] MEDS: CHOLECALCIFEROL (D3) 1,000 UNIT (25 MCG) TABLET PO SCH (09:54)
[2020-11-20] MEDS: AZITHROMYCIN 250 MG TABLET PO SCH (09:55)
[2020-11-20] MEDS: ASCORBIC ACID 500 MG TABLET PO SCH ×2 (09:55→18:03)
[2020-11-20] MEDS: ONDANSETRON HCL INJ/PF 4 MG/2 ML SDV IV PRN (13:46)
[2020-11-20] MEDS: INSULIN GLARGINE,HUM.REC.ANLOG 1,000 UNIT/10 ML VIAL SUBCUT SCH (18:04)
--- NOTE | 2020-11-20 18:52 | PDOC PROGRESS REPORT ---
Subjective Date:: 11/20/20 Subjective:: She denied any chest pain. There is persistent of SOB with exertion and remain o n supplemental oxygen via nasal cannula. No fever experience occasional chills. There is intermittent nausea. No abdominal pain or vomiting. Poor appetite and PO intake. Reason For Visit: COVID-19 PNEUMONIA Physical Exam Vital Signs: Temp Pulse Resp BP Pulse Ox 97.4 F 101 H 20 129/71 H 100 11/20/20 11:07 11/20/20 14:00 11/20/20 11:07 11/20/20 11:07 11/20/20 11:07 Intake & Output 11/19/20 11/20/20 11/21/20 06:59 06:59 06:59 Intake Total 903 1860 2248 Output Total 600 2200 Balance 303 -340 2248 Weight 138 kg 141 kg Physical Exam: General appearance: PRESENT: mild distress - on supplemental oxygen, morbidly obese Head exam: PRESENT: atraumatic, normocephalic Eye exam: PRESENT: conjunctiva pink. ABSENT: pallor, sclera icterus Ear exam: PRESENT: normal external ear exam Mouth exam: PRESENT: moist Respiratory exam: PRESENT: clear to auscultation logan, decreased breath sounds - at lung bases Cardiovascular exam: PRESENT: RRR, +S1, +S2. ABSENT: diastolic murmur, rubs, systolic murmur GI/Abdominal exam: PRESENT: normal bowel sounds, soft. ABSENT: distended, guarding, mass, organomegaly, rebound, tenderness Extremities exam: ABSENT: pedal edema Neurological exam: PRESENT: alert, awake Skin exam: PRESENT: dry, warm Results Laboratory Results: 11/18/20 10:55 11/18/20 10:55 11/17/20 11/18/20 11/18/20 16:36 10:55 10:55 Creatine Kinase 83 Troponin I < 0.012 < 0.012 Impressions: Chest X-Ray 11/17/20 21:33 IMPRESSION: There are no acute lung parenchymal findings. Persistent significant enlargement of the cardiac silhouette. Chest CT 11/18/20 00:00 IMPRESSION: NO SIGNIFICANT FINDING ON NON-CONTRASTED CHEST CT. Hip X-Ray 11/18/20 00:00 IMPRESSION: Advanced osteoarthritis left hip. Assessment & Plan - Diagnosis (1) COVID-19 Is this a current diagnosis for this admission?: Yes (2) Permanent atrial fibrillation Is this a current diagnosis for this admission?: Yes (3) Unilateral primary osteoarthritis, left hip Is this a current diagnosis for this admission?: Yes (4) Diabetes mellitus type 2 in obese Is this a current diagnosis for this admission?: Yes (5) HTN (hypertension) Qualifiers: Hypertension type: essential hypertension Qualified Code(s): I10 - Essential (primary) hypertension Is this a current diagnosis for this admission?: Yes (6) Pickwickian syndrome Is this a current diagnosis for this admission?: Yes (7) BMI 50.0-59.9, adult Is this a current diagnosis for this admission?: Yes - Time Time Spent with patient: 25-34 minutes Level of Care: IMCU Medications reviewed and adjusted accordingly: Yes Anticipated discharge: Home with Homehealth Anticipated DC Timeframe: within 72 hours - Inpatient Certification Based on my medical assessment, after consideration of the patient's comorbidities, presenting symptoms, or acuity I expect that the services needed warrant INPATIENT care.: Yes I certify that my determination is in accordance with my understanding of Medicare's requirements for reasonable and necessary INPATIENT services [42 CFR 412.3e].: Yes Medical Necessity: Significant Comorbidiites Make Outpatient Treatment Too R isky, Need Close Monitoring Due to Risk of Patient Decompensation, Need For Continuous Telemetry Monitoring, Risk of Complication if Not Cared For in Hospital, Risk of Diagnosis Which Will Require Inpatient Eval/Care/Monitoring Post Hospital Care: D/C Underwear Hemmer Documentation - Plan Summary Plan Summary: Administer second dose of Ivermectin 12 mg x 1 dose today. Continue all other current medication management. Obtain CBC with diff and CMP in AM.
[2020-11-20] MEDS ORDERED: IVERMECTIN 3 MG TABLET PO ONE (21:00)
[2020-11-20] MEDS: ATORVASTATIN CALCIUM 10 MG TABLET PO SCH (21:30)
[2020-11-21] MEDS: TEMAZEPAM 7.5 MG CAPSULE PO PRN (00:32)
[2020-11-21] MEDS: OXYCODONE-ACETAMINOPHEN 5-325 MG TABLET PO PRN ×4 (00:32→19:55)
[2020-11-21] MEDS: PREGABALIN 100 MG CAPSULE PO SCH ×3 (05:11→21:35)
[2020-11-21] MEDS: DABIGATRAN ETEXILATE 150 MG CAPSULE PO SCH ×2 (05:11→17:13)
[2020-11-21] MEDS: LEVOTHYROXINE SODIUM 0.1 MG TABLET PO SCH (05:11)
[2020-11-21] MEDS: LEVOTHYROXINE SODIUM 0.025 MG TABLET PO SCH (05:11)
[2020-11-21] MEDS: PANTOPRAZOLE SODIUM 40 MG TABLET.DR PO SCH (05:11)
[2020-11-21] MEDS: RINGERS SOLUTION,LACTATED 1,000 ML IV PRN ×2 (05:11→16:44)
[2020-11-21 06:22] LABS: ABSOLUTE LYMPHOCYTES (AUTO) 0.7 10^3/uL (0.5-4.7); ABSOLUTE MONOCYTES (AUTO) 0.4 10^3/uL (0.1-1.4); ABSOLUTE NEUT (AUTO) 1.2 10^3/uL (1.7-8.2); BASOPHILS % (AUTO) 0.6 % (0-2); HEMATOCRIT 32.2 % (36.0-47.0); HEMOGLOBIN 10.8 g/dL (12.0-15.5); LYMPHOCYTES % (AUTO) 32.7 % (13-45); MEAN CORPUSCULAR HEMOGLOBIN 31.2 pg (27.0-33.4); MEAN CORPUSCULAR HGB CONC 33.4 g/dL (32.0-36.0); MEAN CORPUSCULAR VOLUME 93 fl (80-97); MONOCYTES % (AUTO) 15.6 % (3-13); PLATELET COUNT 144 10^3/uL (150-450); RED BLOOD COUNT 3.45 10^6/uL (3.72-5.28); RED CELL DISTRIBUTION WIDTH 14.1 % (11.5-14.0); SEGMENTED NEUTROPHILS % (AUTO) 51.1 % (42-78); TOTAL CELLS COUNTED % (AUTO) 100 %; WHITE BLOOD COUNT 2.3 10^3/uL (4.0-10.5)
[2020-11-21 07:02] LABS: ALBUMIN 3.1 g/dL (3.5-5.0); ALKALINE PHOSPHATASE 44 U/L (38-126); ASPARTATE AMINO TRANSFERASE 26 U/L (14-36); BILIRUBIN,DIRECT 0.3 mg/dL (0.0-0.4); BILIRUBIN,TOTAL 0.4 mg/dL (0.2-1.3); BLOOD UREA NITROGEN 13 mg/dL (7-20); CALCIUM 8.1 mg/dL (8.4-10.2); GLUCOSE 94 mg/dL (75-110); POTASSIUM 4.6 mmol/L (3.6-5.0)
[2020-11-21 07:09] LABS: CARBON DIOXIDE 39 mmol/L (22-30); CHLORIDE 102 mmol/L (98-107)
[2020-11-21 07:10] LABS: ANION GAP -2 (5-19)
[2020-11-21] MEDS: INSULIN LISPRO 100 UNIT/ML 3 ML VIAL SUBCUT SCH ×4 (08:42→21:50)
[2020-11-21] MEDS: SUCRALFATE 1 GM TABLET PO SCH ×4 (08:50→21:35)
[2020-11-21] MEDS: ONDANSETRON HCL INJ/PF 4 MG/2 ML SDV IV PRN (08:50)
[2020-11-21] MEDS: CHOLECALCIFEROL (D3) 1,000 UNIT (25 MCG) TABLET PO SCH (09:00)
[2020-11-21] MEDS: LISINOPRIL 5 MG TABLET PO SCH (09:01)
[2020-11-21] MEDS: AZITHROMYCIN 250 MG TABLET PO SCH (09:01)
[2020-11-21] MEDS: ASCORBIC ACID 500 MG TABLET PO SCH ×2 (09:01→17:13)
[2020-11-21] MEDS: DEXAMETHASONE SOD PHOS INJ 10 MG/1 ML VIAL IV SCH (09:02)
[2020-11-21] MEDS: ZINC SULFATE 220 MG CAPSULE PO SCH (09:02)
[2020-11-21] MEDS: REMDESIVIR 100 MG in NORMAL SALINE 250 ML IV SCH (10:48)
[2020-11-21] MEDS: BENZONATATE 100 MG CAPSULE PO SCH ×2 (13:47→21:35)
[2020-11-21] MEDS: INSULIN GLARGINE,HUM.REC.ANLOG 1,000 UNIT/10 ML VIAL SUBCUT SCH (17:12)
--- NOTE | 2020-11-21 21:19 | PDOC PROGRESS REPORT ---
Subjective Date:: 11/21/20 Subjective:: Less nausea and better food intake today. No abdominal pain or vomiting. She den ied any chest pain. There is persistent coughing with minimal expectoration. Remain on supplemental oxygen via nasal cannula. No fever experience occasional chills. Reason For Visit: COVID-19 PNEUMONIA Physical Exam Vital Signs: Temp Pulse Resp BP Pulse Ox 98.1 F 94 18 143/69 H 99 11/21/20 11:25 11/21/20 11:25 11/21/20 11:25 11/21/20 11:25 11/21/20 11:25 Intake & Output 11/20/20 11/21/20 11/22/20 06:59 06:59 06:59 Intake Total 1860 3948 250 Output Total 2200 2200 Balance -340 1748 250 Weight 141 kg 139.8 kg Physical Exam: General appearance: PRESENT: mild distress - on supplemental oxygen, morbidly obese Head exam: PRESENT: atraumatic, normocephalic Eye exam: PRESENT: conjunctiva pink. ABSENT: pallor, sclera icterus Ear exam: PRESENT: normal external ear exam Mouth exam: PRESENT: moist Respiratory exam: PRESENT: clear to auscultation logan, decreased breath sounds - at lung bases Cardiovascular exam: PRESENT: RRR, +S1, +S2. ABSENT: diastolic murmur, rubs, systolic murmur GI/Abdominal exam: PRESENT: normal bowel sounds, soft. ABSENT: distended, guarding, mass, organomegaly, rebound, tenderness Extremities exam: ABSENT: pedal edema Neurological exam: PRESENT: alert, awake Skin exam: PRESENT: dry, warm Results Laboratory Results: 11/21/20 05:50 11/21/20 05:50 11/21/20 11/21/20 05:50 05:50 WBC 2.3 L RBC 3.45 L Hgb 10.8 L Hct 32.2 L MCV 93 MCH 31.2 MCHC 33.4 RDW 14.1 H Plt Count 144 L Seg Neutrophils % 51.1 Sodium 139.4 Potassium 4.6 Chloride 102 Carbon Dioxide 39 H Anion Gap -2 L BUN 13 Creatinine 0.69 Est GFR ( Amer) > 60 Glucose 94 Calcium 8.1 L Total Bilirubin 0.4 AST 26 Alkaline Phosphatase 44 Total Protein 6.0 L Albumin 3.1 L 11/17/20 11/18/2011/18/21 16:36 10:55 10:55 Creatine Kinase 83 Troponin I < 0.012 < 0.012 Impressions: Chest X-Ray 11/17/20 21:33 IMPRESSION: There are no acute lung parenchymal findings. Persistent significant enlargement of the cardiac silhouette. Chest CT 11/18/20 00:00 IMPRESSION: NO SIGNIFICANT FINDING ON NON-CONTRASTED CHEST CT. Hip X-Ray 11/18/20 00:00 IMPRESSION: Advanced osteoarthritis left hip. Assessment & Plan - Diagnosis (1) COVID-19 Is this a current diagnosis for this admission?: Yes (2) Permanent atrial fibrillation Is this a current diagnosis for this admission?: Yes (3) Unilateral primary osteoarthritis, left hip Is this a current diagnosis for this admission?: Yes (4) Diabetes mellitus type 2 in obese Is this a current diagnosis for this admission?: Yes (5) HTN (hypertension) Qualifiers: Hypertension type: essential hypertension Qualified Code(s): I10 - Essential (primary) hypertension Is this a current diagnosis for this admission?: Yes (6) Pickwickian syndrome Is this a current diagnosis for this admission?: Yes (7) BMI 50.0-59.9, adult Is this a current diagnosis for this admission?: Yes - Time Time Spent with patient: 25-34 minutes Level of Care: IMCU Medications reviewed and adjusted accordingly: Yes Anticipated discharge: Home with Homehealth Anticipated DC Timeframe: within 72 hours - Inpatient Certification Based on my medical assessment, after consideration of the patient's comorbidities, presenting symptoms, or acuity I expect that the services needed warrant INPATIENT care.: Yes I certify that my determination is in accordance with my understanding of Medicare's requirements for reasonable and necessary INPATIENT services [42 CFR 412.3e].: Yes Medical Necessity: Significant Comorbidiites Make Outpatient Treatment Too Risky, Need Close Monitoring Due to Risk of Patient Decompensation, Need For IV Fluids, Need For Continuous Telemetry Monitoring, Risk of Complication if Not Cared For in Hospital, Risk of Diagnosis Which Will Require Inpatient Eval/Care/Monitoring Post Hospital Care: D/C Consulting Actuary Documentation - Plan Summary Plan Summary: Start on Benzonatate 200 mg p.o tid. Continue on all other current medication management. Prognosis remain guided.
[2020-11-21] MEDS: ATORVASTATIN CALCIUM 10 MG TABLET PO SCH (21:35)
[2020-11-22] MEDS: TEMAZEPAM 7.5 MG CAPSULE PO PRN (00:35)
[2020-11-22] MEDS: OXYCODONE-ACETAMINOPHEN 5-325 MG TABLET PO PRN ×3 (01:57→17:43)
[2020-11-22] MEDS: DABIGATRAN ETEXILATE 150 MG CAPSULE PO SCH ×2 (05:02→17:43)
[2020-11-22] MEDS: PREGABALIN 100 MG CAPSULE PO SCH ×3 (05:02→21:02)
[2020-11-22] MEDS: PANTOPRAZOLE SODIUM 40 MG TABLET.DR PO SCH (05:02)
[2020-11-22] MEDS: LEVOTHYROXINE SODIUM 0.025 MG TABLET PO SCH (05:02)
[2020-11-22] MEDS: BENZONATATE 100 MG CAPSULE PO SCH ×3 (05:02→21:02)
[2020-11-22] MEDS: LEVOTHYROXINE SODIUM 0.1 MG TABLET PO SCH (05:02)
[2020-11-22] MEDS: RINGERS SOLUTION,LACTATED 1,000 ML IV PRN ×2 (05:07→15:25)
[2020-11-22] MEDS: INSULIN LISPRO 100 UNIT/ML 3 ML VIAL SUBCUT SCH ×4 (09:02→21:02)
[2020-11-22] MEDS: AZITHROMYCIN 250 MG TABLET PO SCH (09:33)
[2020-11-22] MEDS: DEXAMETHASONE SOD PHOS INJ 10 MG/1 ML VIAL IV SCH (09:33)
[2020-11-22] MEDS: REMDESIVIR 100 MG in NORMAL SALINE 250 ML IV SCH (09:33)
[2020-11-22] MEDS: LISINOPRIL 5 MG TABLET PO SCH (09:34)
[2020-11-22] MEDS: CHOLECALCIFEROL (D3) 1,000 UNIT (25 MCG) TABLET PO SCH (09:34)
[2020-11-22] MEDS: ASCORBIC ACID 500 MG TABLET PO SCH ×2 (09:34→17:43)
[2020-11-22] MEDS: SUCRALFATE 1 GM TABLET PO SCH ×4 (09:34→21:02)
[2020-11-22] MEDS: INSULIN GLARGINE,HUM.REC.ANLOG 1,000 UNIT/10 ML VIAL SUBCUT SCH (17:59)
--- NOTE | 2020-11-22 19:13 | PDOC PROGRESS REPORT ---
Subjective Date:: 11/22/20 Subjective:: Patient denied any chest pain. No abdominal pain, nausea, or vomiting. Less coug nolvia but remain on supplemental oxygen via nasal cannula. No fever or chills. Nursing staff reported episode of exertional tachycardia with use of bathroom earlier today. No arrhythmia beyond tachycardia on her monitor. Reason For Visit: COVID-19 PNEUMONIA Physical Exam Vital Signs: Temp Pulse Resp BP Pulse Ox 98.0 F 70 20 156/74 H 100 11/22/20 11:52 11/22/20 19:00 11/22/20 11:52 11/22/20 11:52 11/22/20 11:52 Intake & Output 11/21/20 11/22/20 11/23/20 06:59 06:59 06:59 Intake Total 3948 2750 1706 Output Total 2200 1400 Balance 1748 1350 1706 Weight 139.8 kg 140.5 kg 140.5 kg Physical Exam: General appearance: PRESENT: mild distress - on supplemental oxygen, morbidly obese Head exam: PRESENT: atraumatic, normocephalic Eye exam: PRESENT: conjunctiva pink. ABSENT: pallor, sclera icterus Ear exam: PRESENT: normal external ear exam Mouth exam: PRESENT: moist Respiratory exam: PRESENT: clear to auscultation logan, decreased breath sounds - at lung bases Cardiovascular exam: PRESENT: RRR, +S1, +S2. ABSENT: diastolic murmur, rubs, systolic murmur GI/Abdominal exam: PRESENT: normal bowel sounds, soft. ABSENT: distended, guard ing, mass, organomegaly, rebound, tenderness Extremities exam: ABSENT: pedal edema Neurological exam: PRESENT: alert, awake Skin exam: PRESENT: dry, warm Results Laboratory Results: 11/21/20 05:50 11/21/20 05:50 11/17/20 11/18/20 11/18/20 16:36 10:55 10:55 Creatine Kinase 83 Troponin I < 0.012 < 0.012 Impressions: Chest X-Ray 11/17/20 21:33 IMPRESSION: There are no acute lung parenchymal findings. Persistent significant enlargement of the cardiac silhouette. Chest CT 11/18/20 00:00 IMPRESSION: NO SIGNIFICANT FINDING ON NON-CONTRASTED CHEST CT. Hip X-Ray 11/18/20 00:00 IMPRESSION: Advanced osteoarthritis left hip. Assessment & Plan - Diagnosis (1) COVID-19 Is this a current diagnosis for this admission?: Yes (2) Permanent atrial fibrillation Is this a current diagnosis for this admission?: Yes (3) Unilateral primary osteoarthritis, left hip Is this a current diagnosis for this admission?: Yes (4) Diabetes mellitus type 2 in obese Is this a current diagnosis for this admission?: Yes (5) HTN (hypertension) Qualifiers: Hypertension type: essential hypertension Qualified Code(s): I10 - Essential (primary) hypertension Is this a current diagnosis for this admission?: Yes (6) Pickwickian syndrome Is this a current diagnosis for this admission?: Yes (7) BMI 50.0-59.9, adult Is this a current diagnosis for this admission?: Yes - Time Time Spent with patient: 25-34 minutes Level of Care: IMCU Medications reviewed and adjusted accordingly: Yes Anticipated discharge: Home with Homehealth Anticipated DC Timeframe: within 72 hours - Inpatient Certification Based on my medical assessment, after consideration of the patient's comorbidities, presenting symptoms, or acuity I expect that the services needed warrant INPATIENT care.: Yes I certify that my determination is in accordance with my understanding of Medicare's requirements for reasonable and necessary INPATIENT services [42 CFR 412.3e].: Yes Medical Necessity: Significant Comorbidiites Make Outpatient Treatment Too Risky, Need Close Monitoring Due to Risk of Patient Decompensation, Need For IV Fluids, Need For Continuous Telemetry Monitoring, Risk of Complication if Not Cared For in Hospital, Risk of Diagnosis Which Will Require Inpatient Eval/Care/ Monitoring 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 Obtain CBC with diff and CMP in AM.
[2020-11-22] MEDS: ATORVASTATIN CALCIUM 10 MG TABLET PO SCH (21:02)
[2020-11-23] MEDS: TEMAZEPAM 7.5 MG CAPSULE PO PRN (01:07)
[2020-11-23] MEDS: OXYCODONE-ACETAMINOPHEN 5-325 MG TABLET PO PRN ×4 (01:07→21:13)
[2020-11-23] MEDS: LEVOTHYROXINE SODIUM 0.025 MG TABLET PO SCH (05:03)
[2020-11-23] MEDS: PANTOPRAZOLE SODIUM 40 MG TABLET.DR PO SCH (05:03)
[2020-11-23] MEDS: RINGERS SOLUTION,LACTATED 1,000 ML IV PRN ×2 (05:03→15:15)
[2020-11-23] MEDS: PREGABALIN 100 MG CAPSULE PO SCH ×3 (05:03→21:13)
[2020-11-23] MEDS: LEVOTHYROXINE SODIUM 0.1 MG TABLET PO SCH (05:03)
[2020-11-23] MEDS: DABIGATRAN ETEXILATE 150 MG CAPSULE PO SCH ×2 (05:03→17:04)
[2020-11-23] MEDS: BENZONATATE 100 MG CAPSULE PO SCH ×3 (05:03→21:13)
[2020-11-23] MEDS: SUCRALFATE 1 GM TABLET PO SCH ×4 (07:52→21:13)
[2020-11-23] MEDS: INSULIN LISPRO 100 UNIT/ML 3 ML VIAL SUBCUT SCH ×4 (08:06→21:15)
[2020-11-23] MEDS: ASCORBIC ACID 500 MG TABLET PO SCH ×2 (09:44→17:04)
[2020-11-23] MEDS: DEXAMETHASONE SOD PHOS INJ 10 MG/1 ML VIAL IV SCH (09:44)
[2020-11-23] MEDS: CHOLECALCIFEROL (D3) 1,000 UNIT (25 MCG) TABLET PO SCH (09:44)
[2020-11-23] MEDS: LISINOPRIL 5 MG TABLET PO SCH (09:44)
[2020-11-23] MEDS: AZITHROMYCIN 250 MG TABLET PO SCH (09:44)
[2020-11-23] MEDS: REMDESIVIR 100 MG in NORMAL SALINE 250 ML IV SCH (09:45)
--- NOTE | 2020-11-23 16:45 | PDOC PROGRESS REPORT ---
Subjective Date:: 11/23/20 Subjective:: Patient denied any chest pain but remain on 2l/min supplemental oxygen via nasal cannula. No abdominal pain, nausea, or vomiting. No fever or chills Reason For Visit: COVID-19 PNEUMONIA Physical Exam Vital Signs: Temp Pulse Resp BP Pulse Ox 98.1 F 58 L 20 147/85 H 100 11/23/20 12:14 11/23/20 14:00 11/23/20 12:14 11/23/20 12:14 11/23/20 12:14 Intake & Output 11/22/20 11/23/20 11/24/20 06:59 06:59 06:59 Intake Total 2750 3433 1250 Output Total 1400 Balance 1350 3433 1250 Weight 140.5 kg 141.2 kg Physical Exam: General appearance: PRESENT: mild distress - on supplemental oxygen, morbidly obese Head exam: PRESENT: atraumatic, normocephalic Eye exam: PRESENT: conjunctiva pink. ABSENT: pallor, sclera icterus Ear exam: PRESENT: normal external ear exam Mouth exam: PRESENT: moist Respiratory exam: PRESENT: clear to auscultation logan, decreased breath sounds - at lung bases Cardiovascular exam: PRESENT: RRR, +S1, +S2. ABSENT: diastolic murmur, rubs, systolic murmur GI/Abdominal exam: PRESENT: normal bowel sounds, soft. ABSENT: distended, guarding, mass, organomegaly, rebound, tenderness Extremities exam: ABSENT: pedal edema Neurological exam: PRESENT: alert, awake Skin exam: PRESENT: dry, warm Results Laboratory Results: 11/21/20 05:50 11/21/20 05:50 11/17/20 11/18/20 11/18/20 16:36 10:55 10:55 Creatine Kinase 83 Troponin I < 0.012 < 0.012 Impressions: Chest X-Ray 11/17/20 21:33 IMPRESSION: There are no acute lung parenchymal findings. Persistent significant enlargement of the cardiac silhouette. Chest CT 11/18/20 00:00 IMPRESSION: NO SIGNIFICANT FINDING ON NON-CONTRASTED CHEST CT. Hip X-Ray 11/18/20 00:00 IMPRESSION: Advanced osteoarthritis left hip. Assessment & Plan - Diagnosis (1) COVID-19 Is this a current diagnosis for this admission?: Yes (2) Permanent atrial fibrillation Is this a current diagnosis for this admission?: Yes (3) Unilateral primary osteoarthritis, left hip Is this a current diagnosis for this admission?: Yes (4) Diabetes mellitus type 2 in obese Is this a current diagnosis for this admission?: Yes (5) HTN (hypertension) Qualifiers: Hypertension type: essential hypertension Qualified Code(s): I10 - Essential (primary) hypertension Is this a current diagnosis for this admission?: Yes (6) Pickwickian syndrome Is this a current diagnosis for this admission?: Yes (7) BMI 50.0-59.9, adult Is this a current diagnosis for this admission?: Yes - Time Time Spent with patient: 25-34 minutes Level of Care: IMCU Medications reviewed and adjusted accordingly: Yes Anticipated discharge: Home with Homehealth Anticipated DC Timeframe: within 72 hours - Inpatient Certification Based on my medical assessment, after consideration of the patient's comorbidities, presenting symptoms, or acuity I expect that the services needed warrant INPATIENT care.: Yes I certify that my determination is in accordance with my understanding of Medicare's requirements for reasonable and necessary INPATIENT services [42 CFR 412.3e].: Yes Medical Necessity: Significant Comorbidiites Make Outpatient Treatment Too R isky, Need Close Monitoring Due to Risk of Patient Decompensation, Need For IV Fluids, Need For Continuous Telemetry Monitoring, Risk of Complication if Not Cared For in Hospital, Risk of Diagnosis Which Will Require Inpatient Eval/Care/Monitoring Post Hospital Care: D/C Hospital Superintendent Documentation - Plan Summary Plan Summary: Continue current medication management.
[2020-11-23] MEDS: INSULIN GLARGINE,HUM.REC.ANLOG 1,000 UNIT/10 ML VIAL SUBCUT SCH (18:12)
[2020-11-23] MEDS: ACETAMINOPHEN 325 MG TABLET PO PRN (18:42)
[2020-11-23] MEDS: ATORVASTATIN CALCIUM 10 MG TABLET PO SCH (21:13)
[2020-11-24] MEDS: RINGERS SOLUTION,LACTATED 1,000 ML IV PRN ×3 (01:15→23:24)
[2020-11-24] MEDS: BENZONATATE 100 MG CAPSULE PO SCH ×3 (05:14→21:28)
[2020-11-24] MEDS: PREGABALIN 100 MG CAPSULE PO SCH ×3 (05:14→21:28)
[2020-11-24] MEDS: PANTOPRAZOLE SODIUM 40 MG TABLET.DR PO SCH (05:14)
[2020-11-24] MEDS: DABIGATRAN ETEXILATE 150 MG CAPSULE PO SCH ×2 (05:14→17:26)
[2020-11-24] MEDS: OXYCODONE-ACETAMINOPHEN 5-325 MG TABLET PO PRN ×3 (05:14→18:15)
[2020-11-24] MEDS: LEVOTHYROXINE SODIUM 0.1 MG TABLET PO SCH (05:14)
[2020-11-24] MEDS: LEVOTHYROXINE SODIUM 0.025 MG TABLET PO SCH (05:14)
[2020-11-24] MEDS: SUCRALFATE 1 GM TABLET PO SCH ×4 (07:52→21:28)
[2020-11-24] MEDS: INSULIN LISPRO 100 UNIT/ML 3 ML VIAL SUBCUT SCH ×4 (07:53→21:28)
[2020-11-24] MEDS: ASCORBIC ACID 500 MG TABLET PO SCH ×2 (10:06→17:26)
[2020-11-24] MEDS: DEXAMETHASONE SOD PHOS INJ 10 MG/1 ML VIAL IV SCH (10:06)
[2020-11-24] MEDS: CHOLECALCIFEROL (D3) 1,000 UNIT (25 MCG) TABLET PO SCH (10:06)
[2020-11-24] MEDS: LISINOPRIL 5 MG TABLET PO SCH (10:07)
[2020-11-24] MEDS: AZITHROMYCIN 250 MG TABLET PO SCH (10:07)
--- NOTE | 2020-11-24 11:10 | PDOC PROGRESS REPORT ---
Subjective Date:: 11/24/20 Subjective:: Patient is denied any chest pain Denied any shortness of the breath Patient is currently on 2 L nasal cannula Reason For Visit: COVID-19 PNEUMONIA Physical Exam Vital Signs: Temp Pulse Resp BP Pulse Ox 97.9 F 55 L 18 147/75 H 96 11/24/20 07:49 11/24/20 07:49 11/24/20 07:49 11/24/20 07:49 11/24/20 07:49 Intake & Output 11/23/20 11/24/20 11/25/20 06:59 06:59 06:59 Intake Total 3433 3350 Output Total 2700 Balance 3433 650 Weight 141.2 kg 142 kg General appearance: PRESENT: no acute distress, well-developed, well-nourished Head exam: PRESENT: atraumatic, normocephalic Eye exam: PRESENT: conjunctiva pink, EOMI, PERRLA. ABSENT: scleral icterus Ear exam: PRESENT: normal external ear exam Mouth exam: PRESENT: moist, tongue midline Neck exam: PRESENT: full ROM. ABSENT: carotid bruit, JVD, lymphadenopathy, thyromegaly Respiratory exam: PRESENT: clear to auscultation logan Cardiovascular exam: PRESENT: RRR. ABSENT: diastolic murmur, rubs, systolic murmur Pulses: PRESENT: normal dorsalis pedis pul, +2 pedal pulses bilateral Vascular exam: PRESENT: normal capillary refill GI/Abdominal exam: PRESENT: normal bowel sounds, soft. ABSENT: distended, guarding, mass, organolmegaly, rebound, tenderness Rectal exam: PRESENT: deferred Neurological exam: PRESENT: alert, awake, oriented to person, oriented to place, oriented to time, oriented to situation, CN II-XII grossly intact. ABSENT: motor sensory deficit Psychiatric exam: PRESENT: appropriate affect, normal mood. ABSENT: homicidal ideation, suicidal ideation Skin exam: PRESENT: dry, intact, warm. ABSENT: cyanosis, rash Results Laboratory Results: 11/21/20 05:50 11/21/20 05:50 11/17/20 11/18/20 11/18/20 16:36 10:55 10:55 Creatine Kinase 83 Troponin I < 0.012 < 0.012 Impressions: Chest X-Ray 11/17/20 21:33 IMPRESSION: There are no acute lung parenchymal findings. Persistent significant enlargement of the cardiac silhouette. Chest CT 11/18/20 00:00 IMPRESSION: NO SIGNIFICANT FINDING ON NON-CONTRASTED CHEST CT. Hip X-Ray 11/18/20 00:00 IMPRESSION: Advanced osteoarthritis left hip. Assessment & Plan - Diagnosis (1) Permanent atrial fibrillation Is this a current diagnosis for this admission?: Yes (2) Unilateral primary osteoarthritis, left hip Is this a current diagnosis for this admission?: Yes (3) Diabetes mellitus type 2 in obese Is this a current diagnosis for this admission?: Yes (4) HTN (hypertension) Qualifiers: Hypertension type: essential hypertension Qualified Code(s): I10 - Essential (primary) hypertension Is this a current diagnosis for this admission?: Yes (5) Pickwickian syndrome Is this a current diagnosis for this admission?: Yes - Time Time Spent with patient: 15-24 minutes Level of Care: IMCU Medications reviewed and adjusted accordingly: Yes Anticipated discharge: Home with Homehealth Anticipated DC Timeframe: within 48 hours - Plan Summary Plan Summary: Patient is currently doing very well back to the baseline hopefully discharge next 48 hours continues to current medications
[2020-11-24 14:34] LABS: ALBUMIN 3.4 g/dL (3.5-5.0); ALKALINE PHOSPHATASE 48 U/L (38-126); ASPARTATE AMINO TRANSFERASE 36 U/L (14-36); BILIRUBIN,DIRECT 0.2 mg/dL (0.0-0.4); BILIRUBIN,TOTAL 0.5 mg/dL (0.2-1.3); BLOOD UREA NITROGEN 17 mg/dL (7-20); CALCIUM 8.8 mg/dL (8.4-10.2); CARBON DIOXIDE 38 mmol/L (22-30); GLUCOSE 147 mg/dL (75-110); POTASSIUM 4.5 mmol/L (3.6-5.0); TOTAL PROTEIN 6.1 g/dL (6.3-8.2)
[2020-11-24 14:39] LABS: CHLORIDE 98 mmol/L (98-107)
[2020-11-24 14:41] LABS: ANION GAP 2 (5-19)
[2020-11-24 14:47] LABS: HEMATOCRIT 37.8 % (36.0-47.0); HEMOGLOBIN 12.2 g/dL (12.0-15.5); MEAN CORPUSCULAR HEMOGLOBIN 30.6 pg (27.0-33.4); MEAN CORPUSCULAR HGB CONC 32.4 g/dL (32.0-36.0); MEAN CORPUSCULAR VOLUME 94 fl (80-97); PLATELET COUNT 151 10^3/uL (150-450); WHITE BLOOD COUNT 7.4 10^3/uL (4.0-10.5)
[2020-11-24 15:10] LABS: ABSOLUTE LYMPHOCYTES# (MANUAL) 0.6 10^3/uL (0.5-4.7); ABSOLUTE MONOCYTES # (MANUAL) 0.1 10^3/uL (0.1-1.4); BASOPHILS % (MANUAL) 0 % (0-2); EOSINOPHILS % (MANUAL) 0 % (0-6); LYMPHOCYTES % (MANUAL) 8 % (13-45); MONOCYTES % (MANUAL) 2 % (3-13); SEGMENTED NEUTROPHILS % (MAN) 90 % (42-78); TOTAL CELLS COUNTED 100
[2020-11-24 15:15] LABS: ANISOCYTOSIS SLIGHT
[2020-11-24 15:16] LABS: PLATELET COMMENT ADEQUATE
[2020-11-24] MEDS: INSULIN GLARGINE,HUM.REC.ANLOG 1,000 UNIT/10 ML VIAL SUBCUT SCH (17:26)
--- NOTE | 2020-11-24 21:00 | Progress Note ---
Provider Note Provider Note: This patient was discussed with Dr. Blum earlier today. Per his report, the patient has not had any cardiac complaints but he wanted me to review her most recent ekg. I did review her chart which reveals that the patient had been deemed to be improving. Her most recent ekg done 11/24/20 at around 1338 demonstrates normal sinus rhythm with PAC's. When compared to prior ekg's, there is no significant change. I called Dr. Blum again just a few minutes ago to make him aware of my findings, then indicated that there is no clinical need for me to see the patient and that he will contact me if the patient were to develop any cardiac complaints.
[2020-11-24] MEDS: ATORVASTATIN CALCIUM 10 MG TABLET PO SCH (21:28)
--- NOTE | 2020-11-24 23:15 | EKG REPORT ---
SEVERITY:- ABNORMAL ECG - SINUS TACHYCARDIA WITH SHORT MAT RUN PAIRED VENTRICULAR PREMATURE COMPLEXES BORDERLINE T ABNORMALITIES, ANT-LAT LEADS : Confirmed by: Anish Marrufo 24-Nov-2020 23:15:16
[2020-11-25] MEDS: OXYCODONE-ACETAMINOPHEN 5-325 MG TABLET PO PRN ×4 (01:00→22:03)
[2020-11-25] MEDS: BENZONATATE 100 MG CAPSULE PO SCH ×3 (05:54→22:03)
[2020-11-25] MEDS: PREGABALIN 100 MG CAPSULE PO SCH ×3 (05:54→22:04)
[2020-11-25] MEDS: DABIGATRAN ETEXILATE 150 MG CAPSULE PO SCH ×2 (05:54→17:23)
[2020-11-25] MEDS: PANTOPRAZOLE SODIUM 40 MG TABLET.DR PO SCH (05:54)
[2020-11-25] MEDS: LEVOTHYROXINE SODIUM 0.025 MG TABLET PO SCH (05:54)
[2020-11-25] MEDS: LEVOTHYROXINE SODIUM 0.1 MG TABLET PO SCH (05:55)
[2020-11-25] MEDS: SUCRALFATE 1 GM TABLET PO SCH ×4 (10:23→22:03)
[2020-11-25] MEDS: CHOLECALCIFEROL (D3) 1,000 UNIT (25 MCG) TABLET PO SCH (10:26)
[2020-11-25] MEDS: DEXAMETHASONE SOD PHOS INJ 10 MG/1 ML VIAL IV SCH (10:26)
[2020-11-25] MEDS: AZITHROMYCIN 250 MG TABLET PO SCH (10:26)
[2020-11-25] MEDS: LISINOPRIL 5 MG TABLET PO SCH (10:26)
[2020-11-25] MEDS: ASCORBIC ACID 500 MG TABLET PO SCH ×2 (10:27→17:23)
[2020-11-25] MEDS: RINGERS SOLUTION,LACTATED 1,000 ML IV PRN ×2 (10:29→20:30)
[2020-11-25] MEDS: INSULIN LISPRO 100 UNIT/ML 3 ML VIAL SUBCUT SCH ×4 (10:30→22:04)
--- NOTE | 2020-11-25 10:54 | PDOC PROGRESS REPORT ---
Subjective Date:: 11/25/20 Subjective:: Is currently doing fair Patient heart rate is going up and down to his pulse likely from the Covid discussed with the cardiology reviewed the EKG suggest no need for any further intervention at this point Reason For Visit: COVID-19 PNEUMONIA Physical Exam Vital Signs: Temp Pulse Resp BP Pulse Ox 97.8 F 55 L 13 137/66 H 100 11/25/20 07:30 11/25/20 07:30 11/25/20 07:30 11/25/20 07:30 11/25/20 07:30 Intake & Output 11/24/20 11/25/20 11/26/20 06:59 06:59 06:59 Intake Total 3350 2480 1000 Output Total 2700 1225 Balance 650 1255 1000 Weight 142 kg 145.3 kg General appearance: PRESENT: no acute distress, well-developed, well-nourished Head exam: PRESENT: atraumatic, normocephalic Eye exam: PRESENT: conjunctiva pink, EOMI, PERRLA. ABSENT: scleral icterus Ear exam: PRESENT: normal external ear exam Mouth exam: PRESENT: moist, tongue midline Neck exam: PRESENT: full ROM. ABSENT: carotid bruit, JVD, lymphadenopathy, thyromegaly Respiratory exam: PRESENT: clear to auscultation logan Cardiovascular exam: PRESENT: RRR. ABSENT: diastolic murmur, rubs, systolic murmur Vascular exam: PRESENT: normal capillary refill GI/Abdominal exam: PRESENT: normal bowel sounds, soft. ABSENT: distended, guarding, mass, organolmegaly, rebound, tenderness Rectal exam: PRESENT: deferred Neurological exam: PRESENT: alert, awake, oriented to person, oriented to place, oriented to time, oriented to situation, CN II-XII grossly intact. ABSENT: motor sensory deficit Psychiatric exam: PRESENT: appropriate affect, normal mood. ABSENT: homicidal ideation, suicidal ideation Skin exam: PRESENT: dry, intact, warm. ABSENT: cyanosis, rash Results Laboratory Results: 11/24/20 14:08 11/24/20 14:08 11/24/20 11/24/20 14:08 14:08 WBC 7.4 RBC 4.00 Hgb 12.2 Hct 37.8 MCV 94 MCH 30.6 MCHC 32.4 RDW 14.0 Plt Count 151 Seg Neutrophils % Not Reportable Sodium 138.2 Potassium 4.5 Chloride 98 Carbon Dioxide 38 H Anion Gap 2 L BUN 17 Creatinine 0.71 Est GFR ( Amer) > 60 Glucose 147 H Calcium 8.8 Magnesium 1.7 Total Bilirubin 0.5 AST 36 Alkaline Phosphatase 48 Total Protein 6.1 L Albumin 3.4 L 11/17/20 11/18/20 11/18/20 16:36 10:55 10:55 Creatine Kinase 83 Troponin I < 0.012 < 0.012 Impressions: Chest X-Ray 11/17/20 21:33 IMPRESSION: There are no acute lung parenchymal findings. Persistent significant enlargement of the cardiac silhouette. Chest CT 11/18/20 00:00 IMPRESSION: NO SIGNIFICANT FINDING ON NON-CONTRASTED CHEST CT. Hip X-Ray 11/18/20 00:00 IMPRESSION: Advanced osteoarthritis left hip. Assessment & Plan - Diagnosis (1) Permanent atrial fibrillation Is this a current diagnosis for this admission?: Yes (2) Unilateral primary osteoarthritis, left hip Is this a current diagnosis for this admission?: Yes (3) Diabetes mellitus type 2 in obese Is this a current diagnosis for this admission?: Yes (4) HTN (hypertension) Qualifiers: Hypertension type: essential hypertension Qualified Code(s): I10 - Essential (primary) hypertension Is this a current diagnosis for this admission?: Yes (5) Pickwickian syndrome Is this a current diagnosis for this admission?: Yes - Time Time Spent with patient: 15-24 minutes Level of Care: IMCU Medications reviewed and adjusted accordingly: Yes Anticipated discharge: Home Anticipated DC Timeframe: Other - Plan Summary Plan Summary: Continues to current medications
[2020-11-25] MEDS: INSULIN GLARGINE,HUM.REC.ANLOG 1,000 UNIT/10 ML VIAL SUBCUT SCH (17:23)
[2020-11-25 20:59] LABS: HEMATOCRIT 34.6 % (36.0-47.0); HEMOGLOBIN 11.2 g/dL (12.0-15.5); MEAN CORPUSCULAR HEMOGLOBIN 30.9 pg (27.0-33.4); MEAN CORPUSCULAR HGB CONC 32.4 g/dL (32.0-36.0); MEAN CORPUSCULAR VOLUME 96 fl (80-97); PLATELET COUNT 176 10^3/uL (150-450); RED BLOOD COUNT 3.63 10^6/uL (3.72-5.28); RED CELL DISTRIBUTION WIDTH 14.3 % (11.5-14.0); WHITE BLOOD COUNT 7.9 10^3/uL (4.0-10.5)
[2020-11-25 21:35] LABS: ALKALINE PHOSPHATASE 45 U/L (38-126); ASPARTATE AMINO TRANSFERASE 22 U/L (14-36); BILIRUBIN,DIRECT 0.2 mg/dL (0.0-0.4); BILIRUBIN,TOTAL 0.4 mg/dL (0.2-1.3); BLOOD UREA NITROGEN 20 mg/dL (7-20); CALCIUM 8.5 mg/dL (8.4-10.2); CHLORIDE 98 mmol/L (98-107); GLUCOSE 141 mg/dL (75-110); POTASSIUM 4.4 mmol/L (3.6-5.0); TOTAL PROTEIN 5.7 g/dL (6.3-8.2)
[2020-11-25 21:46] LABS: CREATINE KINASE MB 0.25 ng/mL (<4.55)
[2020-11-25 21:47] LABS: TROPONIN I < 0.012 ng/mL
[2020-11-25 21:48] LABS: CREATINE KINASE < 20 U/L (30-135)
[2020-11-25 21:49] LABS: ANION GAP 2 (5-19)
[2020-11-25 21:50] LABS: CARBON DIOXIDE 40 mmol/L (22-30)
[2020-11-25] MEDS: ATORVASTATIN CALCIUM 10 MG TABLET PO SCH (22:03)
--- NOTE | 2020-11-25 22:43 | EKG REPORT ---
SEVERITY:- ABNORMAL ECG - SINUS RHYTHM MULTIPLE ATRIAL PREMATURE COMPLEXES BORDERLINE T ABNORMALITIES, ANT-LAT LEADS : Confirmed by: Anish Marrufo 25-Nov-2020 22:42:24
[2020-11-26] MEDS: LEVOTHYROXINE SODIUM 0.1 MG TABLET PO SCH (05:33)
[2020-11-26] MEDS: BENZONATATE 100 MG CAPSULE PO SCH ×3 (05:33→21:31)
[2020-11-26] MEDS: PREGABALIN 100 MG CAPSULE PO SCH ×3 (05:34→21:31)
[2020-11-26] MEDS: LEVOTHYROXINE SODIUM 0.025 MG TABLET PO SCH (05:34)
[2020-11-26] MEDS: DABIGATRAN ETEXILATE 150 MG CAPSULE PO SCH ×2 (05:34→18:58)
[2020-11-26] MEDS: PANTOPRAZOLE SODIUM 40 MG TABLET.DR PO SCH (05:34)
[2020-11-26] MEDS: OXYCODONE-ACETAMINOPHEN 5-325 MG TABLET PO PRN ×3 (05:34→19:34)
[2020-11-26] MEDS: INSULIN LISPRO 100 UNIT/ML 3 ML VIAL SUBCUT SCH ×4 (08:07→21:35)
[2020-11-26] MEDS: SUCRALFATE 1 GM TABLET PO SCH ×4 (08:07→21:31)
[2020-11-26] MEDS: RINGERS SOLUTION,LACTATED 1,000 ML IV PRN ×2 (09:13→21:38)
[2020-11-26] MEDS: ASCORBIC ACID 500 MG TABLET PO SCH ×2 (09:13→18:58)
[2020-11-26] MEDS: LISINOPRIL 5 MG TABLET PO SCH (09:13)
[2020-11-26] MEDS: ZINC SULFATE 220 MG CAPSULE PO SCH (09:13)
[2020-11-26] MEDS: DEXAMETHASONE SOD PHOS INJ 10 MG/1 ML VIAL IV SCH (09:14)
[2020-11-26] MEDS: CHOLECALCIFEROL (D3) 1,000 UNIT (25 MCG) TABLET PO SCH (09:14)
[2020-11-26] MEDS: ONDANSETRON HCL INJ/PF 4 MG/2 ML SDV IV PRN (10:38)
[2020-11-26] MEDS ORDERED: IVERMECTIN 3 MG TABLET PO ONE (18:30)
[2020-11-26] MEDS: INSULIN GLARGINE,HUM.REC.ANLOG 1,000 UNIT/10 ML VIAL SUBCUT SCH (18:59)
--- NOTE | 2020-11-26 20:33 | PDOC PROGRESS REPORT ---
Subjective Date:: 11/26/20 Subjective:: Patient denied any chest pain. She remain on 2l/min supplemental oxygen via nasa l cannula. Coughing persist with some improvement in expectoration. She reported been on CPAP machine at home. No abdominal pain, nausea, or vomiting. No fever or chills Reason For Visit: COVID-19 PNEUMONIA Physical Exam Vital Signs: Temp Pulse Resp BP Pulse Ox 98.0 F 56 L 13 150/79 H 100 11/26/20 12:03 11/26/20 12:03 11/26/20 12:03 11/26/20 12:03 11/26/20 12:03 Intake & Output 11/25/20 11/26/20 11/27/20 06:59 06:59 06:59 Intake Total 2480 3690 Output Total 1225 2950 Balance 1255 740 Weight 145.3 kg 143.5 kg Physical Exam: General appearance: PRESENT: mild distress - on supplemental oxygen, morbidly obese Head exam: PRESENT: atraumatic, normocephalic Eye exam: PRESENT: conjunctiva pink. ABSENT: pallor, sclera icterus Ear exam: PRESENT: normal external ear exam Mouth exam: PRESENT: moist Respiratory exam: PRESENT: clear to auscultation logan, decreased breath sounds - at lung bases Cardiovascular exam: PRESENT: RRR, +S1, +S2. ABSENT: diastolic murmur, rubs, systolic murmur GI/Abdominal exam: PRESENT: normal bowel sounds, soft. ABSENT: distended, guarding, mass, organomegaly, rebound, tenderness Extremities exam: ABSENT: pedal edema Neurological exam: PRESENT: alert, awake Skin exam: PRESENT: dry, warm Results Laboratory Results: 11/25/20 20:40 11/25/20 20:40 11/25/20 11/25/20 20:40 20:40 WBC 7.9 RBC 3.63 L Hgb 11.2 L Hct 34.6 L MCV 96 MCH 30.9 MCHC 32.4 RDW 14.3 H Plt Count 176 Sodium 139.9 Potassium 4.4 Chloride 98 Carbon Dioxide 40 H* Anion Gap 2 L BUN 20 Creatinine 0.79 Est GFR ( Amer) > 60 Glucose 141 H Calcium 8.5 Total Bilirubin 0.4 AST 22 Alkaline Phosphatase 45 Total Protein 5.7 L Albumin 3.0 L 11/17/20 11/18/2021 16:36 10:55 10:55 Creatine Kinase 83 CK-MB (CK-2) Troponin I < 0.012 < 0.012 11/25/20 11/25/20 20:40 20:40 Creatine Kinase < 20 L CK-MB (CK-2) 0.25 Troponin I < 0.012 Impressions: Chest X-Ray 11/17/20 21:33 IMPRESSION: There are no acute lung parenchymal findings. Persistent significant enlargement of the cardiac silhouette. Chest CT 11/18/20 00:00 IMPRESSION: NO SIGNIFICANT FINDING ON NON-CONTRASTED CHEST CT. Hip X-Ray 11/18/20 00:00 IMPRESSION: Advanced osteoarthritis left hip. Assessment & Plan - Diagnosis (1) COVID-19 Is this a current diagnosis for this admission?: Yes (2) Permanent atrial fibrillation Is this a current diagnosis for this admission?: Yes (3) Unilateral primary osteoarthritis, left hip Is this a current diagnosis for this admission?: Yes (4) Diabetes mellitus type 2 in obese Is this a current diagnosis for this admission?: Yes (5) HTN (hypertension) Qualifiers: Hypertension type: essential hypertension Qualified Code(s): I10 - Essential (primary) hypertension Is this a current diagnosis for this admission?: Yes (6) Pickwickian syndrome Is this a current diagnosis for this admission?: Yes (7) BMI 50.0-59.9, adult Is this a current diagnosis for this admission?: Yes - Time Time Spent with patient: 25-34 minutes Level of Care: IMCU Medications reviewed and adjusted accordingly: Yes Anticipated discharge: Home with Homehealth Anticipated DC Timeframe: within 72 hours - Inpatient Certification Based on my medical assessment, after consideration of the patient's comorbidities, presenting symptoms, or acuity I expect that the services needed warrant INPATIENT care.: Yes I certify that my determination is in accordance with my understanding of Medicare's requirements for reasonable and necessary INPATIENT services [42 CFR 412.3e].: Yes Medical Necessity: Significant Comorbidiites Make Outpatient Treatment Too Risky, Need Close Monitoring Due to Risk of Patient Decompensation, Need For Continuous Telemetry Monitoring, Risk of Complication if Not Cared For in Hospital, Risk of Diagnosis Which Will Require Inpatient Eval/Care/Monitoring 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 Continue other current medication management. Emphasized use of CPAP while sleeping due to worsening hypercapnia. Start on Flutter device usage. Overall prognosis remain guided for her covid-19 pneumonia with multiple morbidities.
[2020-11-26] MEDS: ATORVASTATIN CALCIUM 10 MG TABLET PO SCH (21:31)
[2020-11-27] MEDS: OXYCODONE-ACETAMINOPHEN 5-325 MG TABLET PO PRN ×3 (01:49→18:42)
[2020-11-27] MEDS: DABIGATRAN ETEXILATE 150 MG CAPSULE PO SCH ×2 (05:24→17:19)
[2020-11-27] MEDS: LEVOTHYROXINE SODIUM 0.1 MG TABLET PO SCH (05:24)
[2020-11-27] MEDS: BENZONATATE 100 MG CAPSULE PO SCH ×3 (05:24→22:13)
[2020-11-27] MEDS: PANTOPRAZOLE SODIUM 40 MG TABLET.DR PO SCH (05:24)
[2020-11-27] MEDS: LEVOTHYROXINE SODIUM 0.025 MG TABLET PO SCH (05:24)
[2020-11-27] MEDS: PREGABALIN 100 MG CAPSULE PO SCH ×3 (05:24→22:13)
[2020-11-27] MEDS: INSULIN LISPRO 100 UNIT/ML 3 ML VIAL SUBCUT SCH ×4 (08:48→22:14)
[2020-11-27] MEDS: SUCRALFATE 1 GM TABLET PO SCH ×4 (08:51→22:13)
--- NOTE | 2020-11-27 09:59 | EKG REPORT ---
SEVERITY:- ABNORMAL ECG - SINUS RHYTHM WITH APC'S.BASELINE ARTIFACT : Confirmed by: Mandy Denney MD 27-Nov-2020 09:58:53
[2020-11-27] MEDS: ZINC SULFATE 220 MG CAPSULE PO SCH (10:26)
[2020-11-27] MEDS: DEXAMETHASONE SOD PHOS INJ 10 MG/1 ML VIAL IV SCH (10:27)
[2020-11-27] MEDS: CHOLECALCIFEROL (D3) 1,000 UNIT (25 MCG) TABLET PO SCH (10:27)
[2020-11-27] MEDS: ASCORBIC ACID 500 MG TABLET PO SCH ×2 (10:27→17:19)
[2020-11-27] MEDS: LISINOPRIL 5 MG TABLET PO SCH (10:27)
[2020-11-27] MEDS: ONDANSETRON HCL INJ/PF 4 MG/2 ML SDV IV PRN (12:47)
[2020-11-27] MEDS: RINGERS SOLUTION,LACTATED 1,000 ML IV PRN (14:59)
[2020-11-27] MEDS: INSULIN GLARGINE,HUM.REC.ANLOG 1,000 UNIT/10 ML VIAL SUBCUT SCH (17:20)
[2020-11-27 19:18] LABS: BLOOD UREA NITROGEN 21 mg/dL (7-20); CALCIUM 8.8 mg/dL (8.4-10.2); CHLORIDE 97 mmol/L (98-107); GLUCOSE 135 mg/dL (75-110); POTASSIUM 4.9 mmol/L (3.6-5.0)
[2020-11-27 19:24] LABS: ANION GAP 6 (5-19); CARBON DIOXIDE 38 mmol/L (22-30)
[2020-11-27] MEDS: ATORVASTATIN CALCIUM 10 MG TABLET PO SCH (22:14)
[2020-11-27] MEDS: TEMAZEPAM 7.5 MG CAPSULE PO PRN (22:14)
[2020-11-28] MEDS: OXYCODONE-ACETAMINOPHEN 5-325 MG TABLET PO PRN ×3 (01:22→18:02)
[2020-11-28] MEDS: RINGERS SOLUTION,LACTATED 1,000 ML IV PRN ×2 (01:26→11:27)
[2020-11-28] MEDS: PANTOPRAZOLE SODIUM 40 MG TABLET.DR PO SCH (05:02)
[2020-11-28] MEDS: PREGABALIN 100 MG CAPSULE PO SCH ×3 (05:02→21:37)
[2020-11-28] MEDS: DABIGATRAN ETEXILATE 150 MG CAPSULE PO SCH ×2 (05:02→17:00)
[2020-11-28] MEDS: LEVOTHYROXINE SODIUM 0.025 MG TABLET PO SCH (05:03)
[2020-11-28] MEDS: BENZONATATE 100 MG CAPSULE PO SCH ×3 (05:03→21:37)
[2020-11-28] MEDS: LEVOTHYROXINE SODIUM 0.1 MG TABLET PO SCH (05:03)
[2020-11-28] MEDS: INSULIN LISPRO 100 UNIT/ML 3 ML VIAL SUBCUT SCH ×4 (07:53→21:37)
[2020-11-28] MEDS: SUCRALFATE 1 GM TABLET PO SCH (08:38)
[2020-11-28] MEDS: ZINC SULFATE 220 MG CAPSULE PO SCH (08:59)
[2020-11-28] MEDS: CHOLECALCIFEROL (D3) 1,000 UNIT (25 MCG) TABLET PO SCH (08:59)
[2020-11-28] MEDS: LISINOPRIL 5 MG TABLET PO SCH (08:59)
[2020-11-28] MEDS: ASCORBIC ACID 500 MG TABLET PO SCH ×2 (08:59→17:00)
[2020-11-28] MEDS: ONDANSETRON HCL INJ/PF 4 MG/2 ML SDV IV PRN (12:01)
[2020-11-28] MEDS: INSULIN GLARGINE,HUM.REC.ANLOG 1,000 UNIT/10 ML VIAL SUBCUT SCH (17:00)
--- NOTE | 2020-11-28 17:20 | PDOC PROGRESS REPORT ---
Subjective Date:: 11/27/20 Subjective:: Patient reported intermittent substernal chest pain but her EKG and cardiac enzy mes were within normal limits. She remain on 2l/min supplemental oxygen via nasal cannula. Coughing persist with some improvement in expectoration. No abdominal pain, nausea, or vomiting. No fever or chills Reason For Visit: COVID-19 PNEUMONIA Physical Exam Vital Signs: Temp Pulse Resp BP Pulse Ox 97.5 F 65 18 150/64 H 95 11/27/20 11:26 11/27/20 14:00 11/27/20 11:26 11/27/20 11:26 11/27/20 11:26 Intake & Output 11/26/20 11/27/20 11/28/20 06:59 06:59 06:59 Intake Total 3690 1850 1000 Output Total 2950 2675 Balance 740 -825 1000 Weight 143.5 kg 147.3 kg Physical Exam: General appearance: PRESENT: mild distress - on supplemental oxygen, morbidly obese Head exam: PRESENT: atraumatic, normocephalic Eye exam: PRESENT: conjunctiva pink. ABSENT: pallor, sclera icterus Ear exam: PRESENT: normal external ear exam Mouth exam: PRESENT: moist Respiratory exam: PRESENT: clear to auscultation logan, decreased breath sounds - at lung bases Cardiovascular exam: PRESENT: RRR, +S1, +S2. ABSENT: diastolic murmur, rubs, systolic murmur GI/Abdominal exam: PRESENT: normal bowel sounds, soft. ABSENT: distended, guarding, mass, organomegaly, rebound, tenderness Extremities exam: ABSENT: pedal edema Neurological exam: PRESENT: alert, awake Skin exam: PRESENT: dry, warm Results Laboratory Results: 11/25/20 20:40 11/25/20 20:40 11/17/20 11/18/20 11/18/20 16:36 10:55 10:55 Creatine Kinase 83 CK-MB (CK-2) Troponin I < 0.012 < 0.012 11/25/20 11/25/20 20:40 20:40 Creatine Kinase < 20 L CK-MB (CK-2) 0.25 Troponin I < 0.012 Impressions: Chest X-Ray 11/17/20 21:33 IMPRESSION: There are no acute lung parenchymal findings. Persistent significant enlargement of the cardiac silhouette. Chest CT 11/18/20 00:00 IMPRESSION: NO SIGNIFICANT FINDING ON NON-CONTRASTED CHEST CT. Hip X-Ray 11/18/20 00:00 IMPRESSION: Advanced osteoarthritis left hip. Assessment & Plan - Diagnosis (1) COVID-19 Is this a current diagnosis for this admission?: Yes (2) Permanent atrial fibrillation Is this a current diagnosis for this admission?: Yes (3) Unilateral primary osteoarthritis, left hip Is this a current diagnosis for this admission?: Yes (4) Diabetes mellitus type 2 in obese Is this a current diagnosis for this admission?: Yes (5) HTN (hypertension) Qualifiers: Hypertension type: essential hypertension Qualified Code(s): I10 - Essential (primary) hypertension Is this a current diagnosis for this admission?: Yes (6) Pickwickian syndrome Is this a current diagnosis for this admission?: Yes (7) BMI 50.0-59.9, adult Is this a current diagnosis for this admission?: Yes - Time Time Spent with patient: 25-34 minutes Level of Care: IMCU Medications reviewed and adjusted accordingly: Yes Anticipated discharge: Home with Homehealth Anticipated DC Timeframe: within 24 hours - Inpatient Certification Based on my medical assessment, after consideration of the patient's comorbidities, presenting symptoms, or acuity I expect that the services needed warrant INPATIENT care.: Yes I certify that my determination is in accordance with my understanding of Medicare's requirements for reasonable and necessary INPATIENT services [42 CFR 412.3e].: Yes Medical Necessity: Significant Comorbidiites Make Outpatient Treatment Too Risky, Need Close Monitoring Due to Risk of Patient Decompensation, Need For IV Fluids, Need For Continuous Telemetry Monitoring, Risk of Complication if Not Cared For in Hospital, Risk of Diagnosis Which Will Require Inpatient Eval/C are/Monitoring 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 Obtain BMP, CBC with diff.
--- NOTE | 2020-11-28 17:23 | PDOC PROGRESS REPORT ---
Subjective Date:: 11/28/20 Subjective:: Patient denied chest pain but remain on 2l/min supplemental oxygen via nasal can nula. She reported some improvement in her coughing spells with minimal sputum expectoration. No abdominal pain, nausea, or vomiting. No fever or chills Reason For Visit: COVID-19 PNEUMONIA Physical Exam Vital Signs: Temp Pulse Resp BP Pulse Ox 98.1 F 61 16 123/66 93 11/28/20 11:06 11/28/20 14:00 11/28/20 11:06 11/28/20 11:06 11/28/20 16:43 Intake & Output 11/27/20 11/28/20 11/29/20 06:59 06:59 06:59 Intake Total 1850 2380 1356 Output Total 2675 3450 750 Balance -825 -1070 606 Weight 147.3 kg 144.2 kg Physical Exam: General appearance: PRESENT: mild distress - on supplemental oxygen, morbidly obese Head exam: PRESENT: atraumatic, normocephalic Eye exam: PRESENT: conjunctiva pink. ABSENT: pallor, sclera icterus Ear exam: PRESENT: normal external ear exam Mouth exam: PRESENT: moist Respiratory exam: PRESENT: clear to auscultation logan, decreased breath sounds - at lung bases Cardiovascular exam: PRESENT: RRR, +S1, +S2. ABSENT: diastolic murmur, rubs, systolic murmur GI/Abdominal exam: PRESENT: normal bowel sounds, soft. ABSENT: distended, guarding, mass, organomegaly, rebound, tenderness Extremities exam: ABSENT: pedal edema Neurological exam: PRESENT: alert, awake Skin exam: PRESENT: dry, warm Results Laboratory Results: 11/25/20 20:40 11/27/20 18:40 11/27/20 18:40 Sodium 140.5 Potassium 4.9 Chloride 97 L Carbon Dioxide 38 H Anion Gap 6 BUN 21 H Creatinine 0.67 Est GFR ( Amer) > 60 Glucose 135 H Calcium 8.8 Magnesium 1.9 11/17/20 11/18/20 11/18/20 16:36 10:55 10:55 Creatine Kinase 83 CK-MB (CK-2) Troponin I < 0.012 < 0.012 11/25/20 11/25/20 20:40 20:40 Creatine Kinase < 20 L CK-MB (CK-2) 0.25 Troponin I < 0.012 Impressions: Chest X-Ray 11/17/20 21:33 IMPRESSION: There are no acute lung parenchymal findings. Persistent significant enlargement of the cardiac silhouette. Chest CT 11/18/20 00:00 IMPRESSION: NO SIGNIFICANT FINDING ON NON-CONTRASTED CHEST CT. Hip X-Ray 11/18/20 00:00 IMPRESSION: Advanced osteoarthritis left hip. Assessment & Plan - Diagnosis (1) COVID-19 Is this a current diagnosis for this admission?: Yes (2) Permanent atrial fibrillation Is this a current diagnosis for this admission?: Yes (3) Unilateral primary osteoarthritis, left hip Is this a current diagnosis for this admission?: Yes (4) Diabetes mellitus type 2 in obese Is this a current diagnosis for this admission?: Yes (5) HTN (hypertension) Qualifiers: Hypertension type: essential hypertension Qualified Code(s): I10 - Essential (primary) hypertension Is this a current diagnosis for this admission?: Yes (6) Pickwickian syndrome Is this a current diagnosis for this admission?: Yes (7) BMI 50.0-59.9, adult Is this a current diagnosis for this admission?: Yes - Time Time Spent with patient: 25-34 minutes Level of Care: IMCU Medications reviewed and adjusted accordingly: Yes Anticipated discharge: Home with Homehealth Anticipated DC Timeframe: within 24 hours - Inpatient Certification Based on my medical assessment, after consideration of the patient's comorbidities, presenting symptoms, or acuity I expect that the services needed warrant INPATIENT care.: Yes I certify that my determination is in accordance with my understanding of Medicare's requirements for reasonable and necessary INPATIENT services [42 CFR 412.3e].: Yes Medical Necessity: Significant Comorbidiites Make Outpatient Treatment Too Risky, Need Close Monitoring Due to Risk of Patient Decompensation, Need For IV Fluids, Need For Continuous Telemetry Monitoring, Risk of Complication if Not Cared For in Hospital, Risk of Diagnosis Which Will Require Inpatient Eval/ Care/Monitoring Post Hospital Care: D/C Cardroom Drawing Runner Documentation - Plan Summary Plan Summary: Continue current medication management. Obtain CMP and CBC with diff. I discussed discharge plan with patent and she is agreeable to tomorrow. D/C Burnham catheter.
[2020-11-28 18:56] LABS: ABSOLUTE LYMPHOCYTES (AUTO) 1.3 10^3/uL (0.5-4.7); ABSOLUTE MONOCYTES (AUTO) 0.6 10^3/uL (0.1-1.4); ABSOLUTE NEUT (AUTO) 6.8 10^3/uL (1.7-8.2); BASOPHILS % (AUTO) 0.5 % (0-2); EOSINOPHILS % (AUTO) 0.3 % (0-6); HEMATOCRIT 36.1 % (36.0-47.0); HEMOGLOBIN 11.9 g/dL (12.0-15.5); LYMPHOCYTES % (AUTO) 14.9 % (13-45); MEAN CORPUSCULAR HEMOGLOBIN 31.7 pg (27.0-33.4); MEAN CORPUSCULAR HGB CONC 32.9 g/dL (32.0-36.0); MEAN CORPUSCULAR VOLUME 96 fl (80-97); MONOCYTES % (AUTO) 6.6 % (3-13); PLATELET COUNT 186 10^3/uL (150-450); RED BLOOD COUNT 3.75 10^6/uL (3.72-5.28); RED CELL DISTRIBUTION WIDTH 14.5 % (11.5-14.0); SEGMENTED NEUTROPHILS % (AUTO) 77.7 % (42-78); TOTAL CELLS COUNTED % (AUTO) 100 %; WHITE BLOOD COUNT 8.7 10^3/uL (4.0-10.5)
[2020-11-28 19:29] LABS: ALKALINE PHOSPHATASE 49 U/L (38-126); ASPARTATE AMINO TRANSFERASE 16 U/L (14-36); BILIRUBIN,DIRECT 0.1 mg/dL (0.0-0.4); BILIRUBIN,TOTAL 0.6 mg/dL (0.2-1.3); BLOOD UREA NITROGEN 24 mg/dL (7-20); CALCIUM 8.5 mg/dL (8.4-10.2); CHLORIDE 94 mmol/L (98-107); GLUCOSE 121 mg/dL (75-110); POTASSIUM 4.2 mmol/L (3.6-5.0); TOTAL PROTEIN 5.7 g/dL (6.3-8.2)
[2020-11-28 20:06] LABS: ANION GAP 0 (5-19); CARBON DIOXIDE 43 mmol/L (22-30)
[2020-11-28] MEDS: TEMAZEPAM 7.5 MG CAPSULE PO PRN (21:37)
[2020-11-28] MEDS: ATORVASTATIN CALCIUM 10 MG TABLET PO SCH (21:37)
[2020-11-29] MEDS: OXYCODONE-ACETAMINOPHEN 5-325 MG TABLET PO PRN ×4 (00:11→20:22)
[2020-11-29] MEDS: DABIGATRAN ETEXILATE 150 MG CAPSULE PO SCH ×2 (05:27→17:18)
[2020-11-29] MEDS: PREGABALIN 100 MG CAPSULE PO SCH ×3 (05:27→21:10)
[2020-11-29] MEDS: LEVOTHYROXINE SODIUM 0.025 MG TABLET PO SCH (05:27)
[2020-11-29] MEDS: BENZONATATE 100 MG CAPSULE PO SCH ×3 (05:27→21:10)
[2020-11-29] MEDS: LEVOTHYROXINE SODIUM 0.1 MG TABLET PO SCH (05:27)
[2020-11-29] MEDS: PANTOPRAZOLE SODIUM 40 MG TABLET.DR PO SCH (05:27)
[2020-11-29] MEDS: CHOLECALCIFEROL (D3) 1,000 UNIT (25 MCG) TABLET PO SCH (10:02)
[2020-11-29] MEDS: ASCORBIC ACID 500 MG TABLET PO SCH ×2 (10:02→17:18)
[2020-11-29] MEDS: ZINC SULFATE 220 MG CAPSULE PO SCH (10:03)
[2020-11-29] MEDS: LISINOPRIL 5 MG TABLET PO SCH (10:03)
[2020-11-29] MEDS: INSULIN LISPRO 100 UNIT/ML 3 ML VIAL SUBCUT SCH ×4 (10:03→22:50)
[2020-11-29] MEDS: ONDANSETRON HCL INJ/PF 4 MG/2 ML SDV IV PRN ×2 (15:19→21:10)
--- NOTE | 2020-11-29 17:15 | PDOC PROGRESS REPORT ---
Subjective Date:: 11/29/20 Subjective:: Patient denied chest pain but remain on 2l/min supplemental oxygen via nasal can nula. No abdominal pain, nausea, or vomiting. No fever or chills Reason For Visit: COVID-19 PNEUMONIA Physical Exam Vital Signs: Temp Pulse Resp BP Pulse Ox 98.1 F 69 16 120/65 100 11/29/20 11:25 11/29/20 11:25 11/29/20 11:25 11/29/20 11:25 11/29/20 11:25 Intake & Output 11/28/20 11/29/20 11/30/20 06:59 06:59 06:59 Intake Total 2380 1356 Output Total 3450 1435 Balance -1070 -79 Weight 144.2 kg 143.2 kg Physical Exam: General appearance: PRESENT: mild distress - on supplemental oxygen, morbidly obese Head exam: PRESENT: atraumatic, normocephalic Eye exam: PRESENT: conjunctiva pink. ABSENT: pallor, sclera icterus Ear exam: PRESENT: normal external ear exam Mouth exam: PRESENT: moist Respiratory exam: PRESENT: clear to auscultation logan, decreased breath sounds - at lung bases Cardiovascular exam: PRESENT: RRR, +S1, +S2. ABSENT: diastolic murmur, rubs, systolic murmur GI/Abdominal exam: PRESENT: normal bowel sounds, soft. ABSENT: distended, guarding, mass, organomegaly, rebound, tenderness Extremities exam: ABSENT: pedal edema Neurological exam: PRESENT: alert, awake Skin exam: PRESENT: dry, warm Results Laboratory Results: 11/28/20 18:46 11/28/20 18:46 11/28/20 11/28/20 18:46 18:46 WBC 8.7 RBC 3.75 Hgb 11.9 L Hct 36.1 MCV 96 MCH 31.7 MCHC 32.9 RDW 14.5 H Plt Count 186 Seg Neutrophils % 77.7 Sodium 137.1 Potassium 4.2 Chloride 94 L Carbon Dioxide 43 H* Anion Gap 0 L BUN 24 H Creatinine 0.76 Est GFR ( Amer) > 60 Glucose 121 H Calcium 8.5 Total Bilirubin 0.6 AST 16 Alkaline Phosphatase 49 Total Protein 5.7 L Albumin 3.0 L 11/17/20 11/18/20 11/18/20 16:36 10:55 10:55 Creatine Kinase 83 CK-MB (CK-2) Troponin I < 0.012 < 0.012 11/25/20 11/25/20 20:40 20:40 Creatine Kinase < 20 L CK-MB (CK-2) 0.25 Troponin I < 0.012 Impressions: Chest X-Ray 11/17/20 21:33 IMPRESSION: There are no acute lung parenchymal findings. Persistent significant enlargement of the cardiac silhouette. Chest CT 11/18/20 00:00 IMPRESSION: NO SIGNIFICANT FINDING ON NON-CONTRASTED CHEST CT. Hip X-Ray 11/18/20 00:00 IMPRESSION: Advanced osteoarthritis left hip. Assessment & Plan - Diagnosis (1) COVID-19 Is this a current diagnosis for this admission?: Yes (2) Permanent atrial fibrillation Is this a current diagnosis for this admission?: Yes (3) Unilateral primary osteoarthritis, left hip Is this a current diagnosis for this admission?: Yes (4) Diabetes mellitus type 2 in obese Is this a current diagnosis for this admission?: Yes (5) HTN (hypertension) Qualifiers: Hypertension type: essential hypertension Qualified Code(s): I10 - Essential (primary) hypertension Is this a current diagnosis for this admission?: Yes (6) Pickwickian syndrome Is this a current diagnosis for this admission?: Yes (7) BMI 50.0-59.9, adult Is this a current diagnosis for this admission?: Yes - Time Time Spent with patient: 25-34 minutes Level of Care: IMCU Medications reviewed and adjusted accordingly: Yes Anticipated discharge: SNF Anticipated DC Timeframe: within 72 hours - Inpatient Certification Based on my medical assessment, after consideration of the patient's comorbidities, presenting symptoms, or acuity I expect that the services needed warrant INPATIENT care.: Yes I certify that my determination is in accordance with my understanding of Medicare's requirements for reasonable and necessary INPATIENT services [42 CFR 412.3e].: Yes Medical Necessity: Significant Comorbidiites Make Outpatient Treatment Too Risky, Need Close Monitoring Due to Risk of Patient Decompensation, Need For IV Fluids, Need For Continuous Telemetry Monitoring, Risk of Complication if Not Cared For in Hospital, Risk of Diagnosis Which Will Require Inpatient Eval/Care/Monitoring Post Hospital Care: D/C Electronic Device Monitor Documentation - Plan Summary Plan Summary: After discussion with patient's daughter it was made known that patient and family are currently living in an hotel due to ongoing repair work going on at her house. Daughter is agreeable with SNF placement for short term rehabilitation.
[2020-11-29] MEDS: INSULIN GLARGINE,HUM.REC.ANLOG 1,000 UNIT/10 ML VIAL SUBCUT SCH (17:18)
[2020-11-29] MEDS ORDERED: METOPROLOL SUCCINATE 25 MG TAB.SR.24H PO ONE (17:55)
[2020-11-29] MEDS ORDERED: METOPROLOL TARTRATE 25 MG TABLET ONE (17:59)
[2020-11-29] MEDS: METOPROLOL TARTRATE 25 MG TABLET PO SCH (18:09)
[2020-11-29] MEDS: ATORVASTATIN CALCIUM 10 MG TABLET PO SCH (21:11)
[2020-11-30] MEDS: OXYCODONE-ACETAMINOPHEN 5-325 MG TABLET PO PRN ×2 (05:12→13:00)
[2020-11-30] MEDS: PREGABALIN 100 MG CAPSULE PO SCH ×2 (05:13→14:12)
[2020-11-30] MEDS: DABIGATRAN ETEXILATE 150 MG CAPSULE PO SCH (05:13)
[2020-11-30] MEDS: LEVOTHYROXINE SODIUM 0.025 MG TABLET PO SCH (05:13)
[2020-11-30] MEDS: BENZONATATE 100 MG CAPSULE PO SCH ×2 (05:13→14:12)
[2020-11-30] MEDS: METOPROLOL TARTRATE 25 MG TABLET PO SCH (05:14)
[2020-11-30] MEDS: PANTOPRAZOLE SODIUM 40 MG TABLET.DR PO SCH (05:14)
[2020-11-30] MEDS: LEVOTHYROXINE SODIUM 0.1 MG TABLET PO SCH (05:15)
[2020-11-30] MEDS: INSULIN LISPRO 100 UNIT/ML 3 ML VIAL SUBCUT SCH ×2 (08:48→12:29)
[2020-11-30] MEDS: ZINC SULFATE 220 MG CAPSULE PO SCH (09:23)
[2020-11-30] MEDS: CHOLECALCIFEROL (D3) 1,000 UNIT (25 MCG) TABLET PO SCH (09:24)
[2020-11-30] MEDS: ASCORBIC ACID 500 MG TABLET PO SCH (09:24)
[2020-11-30] MEDS: LISINOPRIL 5 MG TABLET PO SCH (09:24)
--- NOTE | 2020-11-30 13:33 | PDOC DISCHARGE SUMMARY ---
Impression - Admit/DC Date/PCP Admission Date/Primary Care Provider: 11/18/20 01:41 OLAF GALLARDO Discharge Date: 11/30/20 - Discharge Diagnosis (1) COVID-19 Is this a current diagnosis for this admission?: Yes (2) Permanent atrial fibrillation Is this a current diagnosis for this admission?: Yes (3) Unilateral primary osteoarthritis, left hip Is this a current diagnosis for this admission?: Yes (4) Diabetes mellitus type 2 in obese Is this a current diagnosis for this admission?: Yes (5) HTN (hypertension) Is this a current diagnosis for this admission?: Yes (6) Pickwickian syndrome Is this a current diagnosis for this admission?: Yes (7) BMI 50.0-59.9, adult Is this a current diagnosis for this admission?: Yes - Assessment Summary: Patient was admitted for COVID-19 infection. She was managed as per [facility] covid- 19 protocol with addition of Ivermectin. Her hospitalization was complicated by her comorbid conditions with variable heart rate and persistent atrial fibrillation. Her sleep apnea and morbid obesity could be contributing factors in her arrhythmia. She was restarted on preadmission Metoprolol therapy. Her breathing remain at baseline related to her MARY JANE and morbid obesity hypoventilation syndrome. She declined recommended SNF placement for short term rehabilitation. She will be discharge home with [facility] services. she will follow up in the office as instructed upon discharge - Additional Information Resuscitation Status: Full Code Discharge Diet: As Tolerated Discharge Activity: Activity As Tolerated, Slowly Increase Activity Referrals: OLAF GALLARDO MD [Primary Care Provider] - 12/12/20 10:00 am Prescriptions: Ivermectin [Stromectol 3 mg Tablet] 12 mg PO ASDIR PRN 21 Days #12 tablet PRN Reason: Benzonatate [Tessalon Perles 100 mg Capsule] 200 mg PO Q8 #60 capsule Ascorbic Acid [Vitamin C 500 mg Tablet] 500 mg PO BID #60 tablet Cholecalciferol (Vitamin D3) [Vitamin D3 1000 Unit Tablet] 2,000 unit PO DAILY #60 tablet Zinc Sulfate [Zinc-220 Capsule] 220 mg PO DAILY #60 capsule Home Medications: Dabigatran Etexilate Mesylate [Pradaxa 150 mg Capsule] 150 mg PO Q12 03/03/19 Furosemide [Lasix 80 mg Tablet] 80 mg PO DAILY 03/03/19 Insulin Glargine,Hum.rec.anlog [Lantus Insulin 100 Unit/1 ml 10 ml] 35 unit SQ QPM 03/03/19 Levothyroxine Sodium [Synthroid] 125 mcg PO Q6AM 03/03/19 Lisinopril [Prinivil 2.5 mg Tablet] 2.5 mg PO DAILY 03/03/19 Metoprolol Tartrate [Lopressor 25 mg Tablet] 25 mg PO Q12 03/03/19 Montelukast Sodium [Singulair 10 mg Tablet] 10 mg PO DAILY 03/03/19 Omeprazole 40 mg PO DAILY 03/03/19 Pregabalin [Lyrica 100 mg Capsule] 100 mg PO Q8 03/03/19 Roflumilast [Daliresp 500 mcg Tablet] 500 mcg PO DAILY 03/03/19 Rosuvastatin Calcium 5 mg PO DAILY 11/18/20 Sucralfate [Carafate Susp 1 gm/10 ml Udcup] 1 gm PO QID 11/18/20 Ascorbic Acid [Vitamin C 500 mg Tablet] 500 mg PO BID #60 tablet 11/30/20 Benzonatate [Tessalon Perles 100 mg Capsule] 200 mg PO Q8 #60 capsule 11/30/20 Cholecalciferol (Vitamin D3) [Vitamin D3 1000 Unit Tablet] 2,000 unit PO DAILY #60 tablet 11/30/20 Ivermectin [Stromectol 3 mg Tablet] 12 mg PO ASDIR PRN 21 Days #12 tablet 11/30/20 Zinc Sulfate [Zinc-220 Capsule] 220 mg PO DAILY #60 capsule 11/30/20 History of Present Illiness History of Present Illness: ADRIANA MCCORMACK is a 65 year old female, She has multiple comorbid conditions including diabetes mellitus, chronic obstructive lung disease with chronic respiratory failure on home oxygen, chronic atrial fibrillation on anticoagulation, morbid obesity, hyperlipidemia, and hypertension she came to the emergency room for evaluation of shortness of breath. She was brought to emergency room by the ambulance a rapid SARS-CoV-2 test was done and was positive. In the emergency room she was evaluated a chest x-ray was done that was negative, when I saw the patient she was literally screaming of pain affecting the left hip joint ,x-rayed the left hip, it demonstrated end-stage osteoarthritis changes in the left hip with remodeling of the femoral head there is mild osteoarthritis of the right hip, she told me that she was advised to have left hip replacement but because of the Covid pandemic the surgery was postponed or is yet to be scheduled., CT chest without contrast was obtained it demonstrated pleural thickening along the fissure bilaterally there is no infiltrate no effusion, the arterial blood gas that was done on FiO2 28% pH is 7.39, PO2 114, bicarbonate 27.8, PCO2 46.5. So she does not have Covid pneumonia she does have Covid but because of the multiple comorbid conditions the ED physician felt patient needed inpatient care Hospital Course Hospital Course: Patient was admitted for COVID-19 infection. She was managed as per [facility] covid- 19 protocol with addition of Ivermectin. Her hospitalization was complicated by her comorbid conditions with variable heart rate and persistent atrial fibrillation. Her sleep apnea and morbid obesity could be contributing factors in her arrhythmia. She was restarted on preadmission Metoprolol therapy. Her breathing remain at baseline related to her MARY JANE and morbid obesity hypoventilation syndrome. She declined recommended SNF placement for short term rehabilitation. She will be discharge home with [facility] services. she will follow up in the office as instructed upon discharge. Physical Exam Vital Signs: Temp Pulse Resp BP Pulse Ox 98.7 F 68 19 95/62 L 99 11/30/20 11:10 11/30/20 11:10 11/30/20 11:10 11/30/20 11:10 11/30/20 11:10 Intake & Output 11/29/20 11/30/20 12/01/20 06:59 06:59 06:59 Intake Total 1356 237 360 Output Total 1435 2375 1075 Balance -79 -2138 -715 Weight 143.2 kg 141.1 kg General appearance: PRESENT: mild distress - on supplemental oxygen, morbidly obese Head exam: PRESENT: atraumatic, normocephalic Eye exam: PRESENT: conjunctiva pink. ABSENT: pallor, sclera icterus Ear exam: PRESENT: normal external ear exam Mouth exam: PRESENT: moist Respiratory exam: PRESENT: clear to auscultation logan, decreased breath sounds - at lung bases Cardiovascular exam: PRESENT: RRR, +S1, +S2. ABSENT: diastolic murmur, rubs, systolic murmur GI/Abdominal exam: PRESENT: normal bowel sounds, soft. ABSENT: distended, guarding, mass, organomegaly, rebound, tenderness Extremities exam: ABSENT: pedal edema Neurological exam: PRESENT: alert, awake Skin exam: PRESENT: dry, warm Results Laboratory Results: WBC 8.7 10^3/uL (4.0-10.5) 11/28/20 18:46 RBC 3.75 10^6/uL (3.72-5.28) 11/28/20 18:46 Hgb 11.9 g/dL (12.0-15.5) L 11/28/20 18:46 Hct 36.1 % (36.0-47.0) 11/28/20 18:46 MCV 96 fl (80-97) 11/28/20 18:46 MCH 31.7 pg (27.0-33.4) 11/28/20 18:46 MCHC 32.9 g/dL (32.0-36.0) 11/28/20 18:46 RDW 14.5 % (11.5-14.0) H 11/28/20 18:46 Plt Count 186 10^3/uL (150-450) 11/28/20 18:46 Lymph % (Auto) 14.9 % (13-45) 11/28/20 18:46 [place] % (Auto) 6.6 % (3-13) 11/28/20 18:46 Eos % (Auto) 0.3 % (0-6) 11/28/20 18:46 Baso % (Auto) 0.5 % (0-2) 11/28/20 18:46 Absolute Neuts (auto) 6.8 10^3/uL (1.7-8.2) 11/28/20 18:46 Absolute Lymphs (auto) 1.3 10^3/uL (0.5-4.7) 11/28/20 18:46 Absolute Monos (auto) 0.6 10^3/uL (0.1-1.4) 11/28/20 18:46 Absolute Eos (auto) 0.0 10^3/uL (0.0-0.6) 11/28/20 18:46 Absolute Basos (auto) 0.0 10^3/uL (0.0-0.2) 11/28/20 18:46 Total Counted 100 11/24/20 14:08 Seg Neutrophils % 77.7 % (42-78) 11/28/20 18:46 Seg Neuts % (Manual) 90 % (42-78) H 11/24/20 14:08 Lymphocytes % (Manual) 8 % (13-45) L 11/24/20 14:08 Monocytes % (Manual) 2 % (3-13) L 11/24/20 14:08 Eosinophils % (Manual) 0 % (0-6) 11/24/20 14:08 Basophils % (Manual) 0 % (0-2) 11/24/20 14:08 Abs Neuts (Manual) 6.7 10^3/uL (1.7-8.2) 11/24/20 14:08 Abs Lymphs (Manual) 0.6 10^3/uL (0.5-4.7) 11/24/20 14:08 Abs Monocytes (Manual) 0.1 10^3/uL (0.1-1.4) 11/24/20 14:08 Absolute Eos (Manual) 0.0 10^3/uL (0.0-0.6) 11/24/20 14:08 Abs Basophils (Manual) 0.0 10^3/uL (0.0-0.2) 11/24/20 14:08 Platelet Comment ADEQUATE 11/24/20 14:08 Anisocytosis SLIGHT 11/24/20 14:08 PT 13.1 SEC (11.4-15.4) 11/18/20 10:55 INR 0.98 11/18/20 10:55 APTT 35.8 SEC (23.5-35.8) 11/18/20 10:55 Fibrinogen 569 mg/dL (209-497) H 11/18/20 10:55 D-Dimer 0.37 ug/mL (0.00-0.50) 11/18/20 10:55 Carbonic Acid 1.40 mmol/L (1.05-1.35) H 11/18/20 09:40 HCO3/H2CO3 Ratio 19:1 11/18/20 09:40 ABG pH 7.39 (7.35-7.45) 11/18/20 09:40 ABG pCO2 46.5 mmHg (35-45) H 11/18/20 09:40 ABG pO2 114.0 mmHg (80-100) H 11/18/20 09:40 ABG HCO3 27.8 mmol/L (20-24) H 11/18/20 09:40 ABG Total CO2 29.2 mmol/L (21-25) H 11/18/20 09:40 ABG O2 Saturation 98.1 % (94-98) H 11/18/20 09:40 ABG Base Excess 2.4 mmol/L 11/18/20 09:40 FiO2 28% 11/18/20 09:40 Sodium 137.1 mmol/L (137-145) 11/28/20 18:46 Potassium 4.2 mmol/L (3.6-5.0) 11/28/20 18:46 Chloride 94 mmol/L (98-107) L 11/28/20 18:46 Carbon Dioxide 43 mmol/L (22-30) H* 11/28/20 18:46 Anion Gap 0 (5-19) L 11/28/20 18:46 BUN 24 mg/dL (7-20) H 11/28/20 18:46 Creatinine 0.76 mg/dL (0.52-1.25) 11/28/20 18:46 Est GFR ( Amer) > 60 (>60) 11/28/20 18:46 Est GFR (MDRD) Non-Af > 60 (>60) 11/28/20 18:46 Glucose 121 mg/dL (75-110) H 11/28/20 18:46 POC Glucose 70 mg/dL (70-110) 11/29/20 07:49 Calcium 8.5 mg/dL (8.4-10.2) 11/28/20 18:46 Magnesium 1.9 mg/dL (1.6-2.3) 11/27/20 18:40 Ferritin 54.00 ng/mL (11.1-264.0) 11/18/20 10:55 Total Bilirubin 0.6 mg/dL (0.2-1.3) 11/28/20 18:46 Direct Bilirubin 0.1 mg/dL (0.0-0.4) 11/28/20 18:46 Neonat Total Bilirubin Not Reportable 11/28/20 18:46 Neonat Direct Bilirubin Not Reportable 11/28/20 18:46 Neonat Indirect Bili Not Reportable 11/28/20 18:46 AST 16 U/L (14-36) 11/28/20 18:46 ALT 19 U/L (<35) 11/28/20 18:46 Alkaline Phosphatase 49 U/L (38-126) 11/28/20 18:46 Lactate Dehydrogenase 125 U/L (120-246) 11/18/20 10:55 Creatine Kinase < 20 U/L (30-135) L 11/25/20 20:40 CK-MB (CK-2) 0.25 ng/mL (<4.55) 11/25/20 20:40 Troponin I < 0.012 ng/mL 11/25/20 20:40 C-Reactive Protein 31.3 mg/L (<10.0) H 11/18/20 10:55 Total Protein 5.7 g/dL (6.3-8.2) L 11/28/20 18:46 Albumin 3.0 g/dL (3.5-5.0) L 11/28/20 18:46 Urine Color YELLOW 11/17/20 23:30 Urine Appearance SLIGHTLY-CLOUDY 11/17/20 23:30 Urine pH 5.0 (5.0-9.0) 11/17/20 23:30 Ur Specific [place] 1.026 11/17/20 23:30 Urine Protein 30 mg/dL (NEGATIVE) H 11/17/20 23:30 Urine Glucose (UA) 50 mg/dL (NEGATIVE) H 11/17/20 23:30 Urine Ketones 80 mg/dL (NEGATIVE) H 11/17/20 23:30 Urine Blood NEGATIVE (NEGATIVE) 11/17/20 23:30 Urine Nitrite NEGATIVE (NEGATIVE) 11/17/20 23:30 Urine Bilirubin NEGATIVE (NEGATIVE) 11/17/20 23:30 Urine Urobilinogen 2.0 mg/dL (<2.0) H 11/17/20 23:30 Ur Leukocyte Esterase NEGATIVE (NEGATIVE) 11/17/20 23:30 Urine WBC (Auto) 0 /HPF 11/17/20 23:30 Urine RBC (Auto) 5 /HPF 11/17/20 23:30 U Hyaline Cast (Auto) 1 /LPF 11/17/20 23:30 Urine Bacteria (Auto) TRACE /HPF 11/17/20 23:30 Squamous Epi Cells Auto 6 /HPF 11/17/20 23:30 Granular Casts (Auto) 1 /LPF 11/17/20 23:30 Urine Mucus (Auto) MOD /LPF 11/17/20 23:30 Urine Ascorbic Acid NEGATIVE (NEGATIVE) 11/17/20 23:30 Influenza A (RT-PCR) NEGATIVE (NEGATIVE) 11/17/20 23:20 Influenza B (RT-PCR) NEGATIVE (NEGATIVE) 11/17/20 23:20 RSV (RT-PCR) NEGATIVE (NEGATIVE) 11/17/20 23:20 SARS-CoV-2 Rap RNA(RT-PCR) POSITIVE (NEGATIVE) H 11/17/20 23:20 Slides for Path Review PATHOLOGIST REVIEWED 11/18/20 10:55 Blood Type A POSITIVE 11/18/20 10:55 11/17/20 11/18/20 11/25/20 16:36 10:55 20:40 CK-MB (CK-2) 0.25 Troponin I < 0.012 < 0.012 < 0.012 Impressions: Chest X-Ray 11/17/20 21:33 IMPRESSION: There are no acute lung parenchymal findings. Persistent significant enlargement of the cardiac silhouette. Chest CT 11/18/20 00:00 IMPRESSION: NO SIGNIFICANT FINDING ON NON-CONTRASTED CHEST CT. Hip X-Ray 11/18/20 00:00 IMPRESSION: Advanced osteoarthritis left hip. Plan Health Concerns: High risk for readmission due to comorbid conditions and compliance with medication and care management Plan of Treatment: Discharge home with [facility] services as per patient and family decision. Goals: Reduce readmission risk. Time Spent: Greater than 30 Minutes Stroke Is this a Stroke Patient?: No Acute Heart Failure Is this a Heart Failure Patient?: No
[2020-11-30] MEDS: ACETAMINOPHEN 325 MG TABLET PO PRN (13:49)
[2020-11-30] MEDS: ONDANSETRON HCL INJ/PF 4 MG/2 ML SDV IV PRN (14:56)
[2020-11-30 17:22] VITALS: BP 113/65
== END 2020-11-30 18:50 | disposition home health service (06) | DRG 178 ==
LOC: ER 16:11 → EH 11-18 01:41 → 3W 11-18 02:56
PROVIDERS: ADMIT Internal Medicine Geriatric Medicine; ATTEND Internal Medicine Geriatric Medicine
PROC: XW13325 Transfusion of Convalescent Plasma (Nonautologous) into Peripheral Vein, Percutaneous Approach, New Technology Group 5 (ICD-10-PCS; principal; 2020-11-18)
PROC: 5A09457 Assistance with Respiratory Ventilation, 24-96 Consecutive Hours, Continuous Positive Airway Pressure (ICD-10-PCS; 2020-11-18)
DX: U07.1 COVID-19 (principal); J96.10 Chronic respiratory failure, unspecified whether with hypoxia or hypercapnia; Z68.43 Body mass index [BMI] 50.0-59.9, adult; I48.21 Permanent atrial fibrillation; E66.2 Morbid (severe) obesity with alveolar hypoventilation; J44.9 Chronic obstructive pulmonary disease, unspecified; Z99.81 Dependence on supplemental oxygen; E11.9 Type 2 diabetes mellitus without complications; E78.5 Hyperlipidemia, unspecified; I10 Essential (primary) hypertension; M16.12 Unilateral primary osteoarthritis, left hip; R00.1 Bradycardia, unspecified; F32.9 Major depressive disorder, single episode, unspecified; Z59.8 Other problems related to housing and economic circumstances; Z87.891 Personal history of nicotine dependence; Z79.4 Long term (current) use of insulin; Z79.899 Other long term (current) drug therapy; Z88.6 Allergy status to analgesic agent; Z88.8 Allergy status to other drugs, medicaments and biological substances
CPT/HCPCS: 36415; 36430; 36600; 71045; 71250; 73522; 80048; 80053; 81001; 82550; 82553; 82728; 82803; 82962; 83615; 83735; 84484; 85025; 85027; 85379; 85384; 85610; 85730; 86140; 86900; 86901; 93005; 93010; 94640; 94660; 94667; 94668; 96361; 96374; 96375; 99285; 0241U; C9803; J1100; J1650; J1815; J1885; J2405; J3010; J3490; J7030; J7050; J7120; J7614